=== PATIENT | female | born 1985 | race Caucasian/White ===

== ENCOUNTER 2018-08-05 11:11 | Emergency (ER) | payer MEDICAID ==
--- NOTE | 2018-08-05 12:04 | ED Physician Documentation ---
PD HPI URI - Stated complaint Stated Complaint: EAR PAIN, SORE THROAT - Chief complaint Chief Complaint: Heent - History obtained from History obtained from: Patient - History of Present Illness Timing - onset: How many weeks ago (1) Timing duration: Weeks (1) Timing details: Gradual onset, Still present Associated symptoms: Ear pain (left ear feels "clogged" for a week, along with congestion and mild sore throat.), Nasal congestion Similar symptoms before: Has not had sx before Recently seen: Not recently seen Review of Systems Constitutional: denies: Fever, Chills, Myalgias Ears: reports: Ear pain (left) Nose: reports: Rhinorrhea / runny nose, Congestion, Sinus pressure / pain Throat: reports: Sore throat Respiratory: denies: Cough GI: denies: Nausea, Vomiting, Diarrhea Skin: denies: Rash PD PAST MEDICAL HISTORY - Past Medical History Past Medical History: No - Present Medications Home Medications: Ambulatory Orders Medication Instructions Recorded Confirmed Amoxicillin 500 mg PO TID #21 capsule 08/05/18 Cetirizine [ZyrTEC] 10 mg PO DAILY #15 tablet 08/05/18 Dexamethasone [Decadron] 4 mg PO DAILY #5 tablet 08/05/18 - Allergies Allergies/Adverse Reactions: Allergies Allergy/AdvReac Type Severity Reaction Status Date / Time No Known Drug Allergies Allergy Verified 03/17/15 18:39 - Social History Does the pt smoke?: No Smoking Status: Never smoker PD ED PE NORMAL - Vitals Vital signs reviewed: Yes - General General: Alert and oriented X 3, No acute distress, Well developed/nourished - HEENT HEENT: Pharynx benign. No: Ears normal (right with some fluid behind it; left with more fluid and is red some. No glaringly red. ) - Neck Neck: Supple, no meningeal sign, No adenopathy - Cardiac Cardiac: RRR, No murmur - Respiratory Respiratory: Clear bilaterally - Derm Derm: Normal color, Warm and dry - Neuro Neuro: Alert and oriented X 3, No motor deficit, Normal speech Results - Vitals Vitals: Vital Signs - 24 hr 08/05/18 08/05/18 11:20 12:49 Temperature 36.8 C Heart Rate 83 82 Respiratory 16 16 Rate Blood Pressure 117/68 110/68 O2 Saturation 99 99 Oxygen O2 Source Room air PD MEDICAL DECISION MAKING - ED course Complexity details: considered differential (mainly URI symptoms but the left TM is bulging wiht some redness. May be early infectious. ), d/w patient Departure - Departure Disposition: 01 Home, Self Care Clinical Impression: Upper respiratory infection Qualifiers: URI type: unspecified URI Qualified Code(s): J06.9 - Acute upper respiratory infection, unspecified Otitis media Qualifiers: Otitis media type: serous Chronicity: acute Laterality: left Recurrence: non- recurrent Qualified Code(s): H65.02 - Acute serous otitis media, left ear Condition: Stable Record reviewed to determine appropriate education?: Yes Instructions: ED Otitis Media Acute Adult Prescriptions: Amoxicillin 500 mg PO TID #21 capsule Cetirizine [ZyrTEC] 10 mg PO DAILY #15 tablet Dexamethasone [Decadron] 4 mg PO DAILY #5 tablet Comments: Sounds mostly like a viral illness. However there is some fluid and redness on the left eardrum causing the congestion. This may be entirely viral or it may be partly bacterial. We will have you drink lots of fluids and use Tylenol ibuprofen if needed for fevers and pains. Decadron for inflammation. Cetirizine antihistamine daily. Use the amoxicillin 3 times a day for a week for possible bacterial involvement. Recheck if not improving over the next few days. Discharge Date/Time: 08/05/18 12:50
[2018-08-05] MEDS ORDERED: DEXAMETHASONE 10 MG/ML VIAL PO STA (12:23)
[2018-08-05] MEDS ORDERED: CHERRY SYRUP 10 ML UDC PO ONE (12:23)
[2018-08-05] MEDS ORDERED: CETIRIZINE 10 MG TABLET PO STA (12:23)
[2018-08-05] MEDS ORDERED: AMOXICILLIN 250 MG CAPSULE PO STA (12:23)
[2018-08-05 12:50] VITALS: BP 110/68
== END 2018-08-05 12:50 | disposition home or self-care (01) ==
LOC: ED 11:11
DX: J06.9 Acute upper respiratory infection, unspecified (principal); H65.02 Acute serous otitis media, left ear
CPT/HCPCS: 99283; A9270

== ENCOUNTER 2018-09-22 11:06 | Outpatient (CLI) | payer MEDICAID ==
--- NOTE | 2018-09-22 14:27 | Mammography Report ---
Reason: RT BREAST MASS Procedure Date: 09/22/2018 Accession Number: [id number] / [id number] Procedure: RODRIGO - Diagnostic Dig Bilat CPT Code: FULL RESULT: EXAM: Diagnostic Dig Bilat DATE: 09/22/2018 12:31 PM CLINICAL HISTORY: Right breast mass palpable on physical exam. TECHNIQUE: (B) - Bilateral CC, laterally exaggerated CC, MLO views were obtained. Additional spot magnified views were also obtained. Focused right breast ultrasound is performed. COMPARISON: None PARENCHYMAL PATTERN: (D) - The breast(s) demonstrate(s) heterogeneously dense fibroglandular parenchyma. FINDINGS: In the lateral right breast is diffusely increased density with mild architectural distortion and no discrete separable mass. Focused right breast ultrasound demonstrates irregular appearing hypoechoic infiltrating soft tissue throughout. There is skin thickening of the right breast. There are no suspicious masses, calcifications, or areas of distortion in the left breast. IMPRESSION: Highly suggestive for malignancy. BI-RADS category 5. RECOMMENDATION: (BIOPSY) - ultrasound-guided right breast biopsy. BI-RADS CATEGORY: (5) - Highly suggestive for malignancy. STANDARD QUALIFYING STATEMENTS: 1. This examination was not reviewed with the aid of Computer-Aided Detection (CAD). 2. A negative or benign imaging report should not preclude biopsy if clinically suspicious findings are present. 3. Dense breasts may obscure an underlying neoplasm. 4. This examination was reviewed without the aid of 3D breast imaging (tomosynthesis).
== END 2018-09-22 11:07 | disposition home or self-care (01) ==
LOC: DI 11:06
PROVIDERS: ATTEND Obstetrics & Gynecology
DX: N63.10 Unspecified lump in the right breast, unspecified quadrant (principal)
CPT/HCPCS: 76642; 77066

== ENCOUNTER 2018-09-30 09:49 | Outpatient (CLI) | payer MEDICAID ==
[2018-09-30] MEDS ORDERED: GADOBUTROL 15 MMOL/15 ML VIAL ONE (10:32)
--- NOTE | 2018-09-30 16:31 | MRI Report ---
Reason: LARGE RT BREAST MASS Procedure Date: 09/30/2018 Accession Number: [id number] / [id number] Procedure: MRI - Breast W/WO Cont CPT Code: 50789 FULL RESULT: EXAM: Breast W/WO Cont DATE: 09/30/2018 12:10 PM CLINICAL HISTORY: LARGE RT BREAST MASS COMPARISON: None. TECHNIQUE: Postcontrast sequential three-dimensional dynamic eTHRIVE (x5) STIR, T1 and DWI CONTRAST USED: 11 mL Gadavist (gadolinium). POSTPROCESSING: Subtraction dynamic/curve analysis and multiplanar reformations with CAD stream Diffusion-weighted imaging is degraded by motion artifact. FINDINGS: Chest: The right internal mammary chain demonstrates abnormal lymph nodes. Right breast: There is an irregular hypervascular infiltrative appearing right breast mass with suspicion enhancement which is centered in the right upper outer quadrant with maximal AP measurement of 12.3 cm in transverse measurement of 6 cm in axial projection of the contiguous Main mass and craniocaudal extent of at least 6.5 cm as seen sagittally. There is marked skin thickening with suspicious nonmass enhancement reaching to the skin. There is nonmass enhancement to the pectoralis major muscle with edema along the ventral pectoralis fascia reaching into the muscle and questionable abnormal enhancement of the lateral pectoralis musculature suspicious for invasion. Visualized portions of the right axilla demonstrate no enlarged lymph nodes as seen on the provided field of view, somewhat limited. Left breast: There is no definite dominant focus of suspicious mass or nonmass enhancement. A few foci of non mass enhancement demonstrated benign dynamic enhancement. There is no skin thickening. There are no pathologically enlarged axillary lymph nodes as seen. IMPRESSION: Infiltrative right upper outer quadrant hyperenhancing vascular mass measuring up to 12.3 cm with skin and pectoralis major muscle involvement and internal mammary lymphadenopathy suspected. COMMENT: The literature indicates that a negative dynamic breast MRI has a high sensitivity and specificity for the detection of invasive carcinoma (to a threshold of 5 mm). MRI is not reliably sensitive for detecting ductal carcinoma in situ or large invasive neoplasms with only minimal enhancement (i.e. mucinous carcinoma). Normal-appearing lymph nodes on MRI may contain microscopic tumor. Appropriate clinical mammographic and sonographic followup should be performed if recommended. Negative MRI should not dissuade further evaluation of any suspicious mammographic calcifications and/or worrisome palpable masses.
== END 2018-09-30 09:50 | disposition home or self-care (01) ==
LOC: DI 09:49
PROVIDERS: ATTEND Surgery
DX: N63.11 Unspecified lump in the right breast, upper outer quadrant (principal)
CPT/HCPCS: 77049

== ENCOUNTER 2018-09-30 09:51 | Outpatient (CLI) | payer MEDICAID ==
[2018-09-30] MEDS ORDERED: BUPIVACAINE 0.5%-EPI 1:200000 PF 10 ML VIAL ONE (11:35)
[2018-09-30] MEDS ORDERED: BUFFERED LIDOCAINE 10 ML SYRINGE ONE (11:35)
[2018-09-30] MEDS ORDERED: GADOBUTROL 15 MMOL/15 ML VIAL IV ONE (12:33)
--- NOTE | 2018-09-30 15:15 | Ultrasound Report ---
Reason: RT BREAST MASS Procedure Date: 09/30/2018 Accession Number: [id number] / [id number] Procedure: US - Biopsy Breast Core CPT Code: FULL RESULT: PROCEDURE: Ultrasound-guided needle biopsy right breast mass. CLINICAL DATA: Targeted mass infiltrating the right breast with irregular margins in the 10 o'clock axis of the right breast. Informed consent was obtained. Using standard aseptic technique, both 1% buffered lidocaine and Sensorcaine were injected into the right breast for local anesthesia. A small sammy was made in the skin with a #11 blade. A 12-gauge ZeOmega vacuum-assisted device was used to obtain 4 specimens. A specialized biopsy marker clip was placed into the biopsy cavity under ultrasound guidance. The patient was taken to separate mammography machine and a two-view digital mammography was performed to verify the clip placement and any complications. The mammography showed the clip placement in the right lateral breast superficial to the breast cone in an area now isodense to background adipose tissue which previously showed dense tissue. The wound was dressed and ice applied. The patient was observed for approximately 15 minutes, then was discharged from diagnostic imaging Department in good condition following instructions on wound care and obtaining biopsy results. The patient is scheduled to receive the biopsy results from the referring physician. The tissue was sent for histologic analysis. The breast was noted to be diffusely hypervascular with exquisite tenderness in hypoechoic regions despite ample local anesthetic. IMPRESSION: Ultrasound-guided biopsy of the right breast. AN ADDENDUM WILL BE MADE TO THIS REPORT WHEN PATHOLOGY IS REVIEWED TO ESTABLISH CONCORDANCE.
[2018-09-30] MEDS ORDERED: BUFFERED LIDOCAINE 10 ML SYRINGE IU ONE (17:03)
[2018-09-30] MEDS ORDERED: BUPIVACAINE 0.5%-EPI 1:200000 PF 10 ML VIAL SUBQ ONE (17:03)
== END 2018-09-30 09:52 | disposition home or self-care (01) ==
LOC: DI 09:51
PROVIDERS: ATTEND Obstetrics & Gynecology
DX: C50.411 Malignant neoplasm of upper-outer quadrant of right female breast (principal); Z17.0 Estrogen receptor positive status [ER+]
CPT/HCPCS: 19083; 77049; 77065; A9585

== ENCOUNTER 2018-10-07 11:43 | Outpatient (CLI) | payer BC ==
--- NOTE | 2018-10-07 16:06 | Ultrasound Report ---
Reason: RIGHT BREAST CANCER Procedure Date: 10/07/2018 Accession Number: [id number] / [id number] Procedure: US - Axilla CPT Code: FULL RESULT: EXAM: Axillary ultrasound DATE: 10/07/2018 1:03 PM CLINICAL HISTORY: RIGHT BREAST CANCER COMPARISON: 09/30/2018 breast MRI, 09/22/2018 mammogram. TECHNIQUE: Real-time scanning of the right axilla with me present in saved static images reviewed. FINDINGS: In the right axilla there is a prominent lymph node versus 2 adjacent inseparable lymph nodes measuring 2.4 x 1.4 x 1.5 cm. There is suspicious asymmetric hypoechoic thickening along 1 margin of the lymph node. In addition immediately adjacent to this lymph node there is a second unusual appearing echogenic lymph node measuring 1.9 x 1.4 x 1.8 cm. IMPRESSION: Suspicious appearing lymph node(s) right axilla. Consider FNA if that would alter the course of patient management. BI-RADS 4 suspicious
== END 2018-10-07 11:44 | disposition home or self-care (01) ==
LOC: DI 11:43
PROVIDERS: ATTEND Surgery
DX: C50.911 Malignant neoplasm of unspecified site of right female breast (principal)
CPT/HCPCS: 76882

== ENCOUNTER 2018-10-11 10:52 | Day surgery (SDC) | payer BC ==
[2018-10-11] MEDS ORDERED: LIDOCAINE 1% 50 ML MDV ONE (11:07)
[2018-10-11] MEDS ORDERED: BUPIVACAINE 0.5%-EPI 1:200000 PF 30 ML VIAL ONE (11:08)
[2018-10-11] MEDS ORDERED: CEFAZOLIN SODIUM IN 0.9 % NACL 2 GM/100 ML BAG IV ONE (11:13)
[2018-10-11 11:25] LABS: HCG UR QUAL NEGATIVE
--- NOTE | 2018-10-11 12:02 | ANESTHESIA ---
Pre-Anesthesia VS, & Labs - Diagnosis breast cancer - Procedure port placement Vital Signs: Temp Pulse Resp BP Pulse Ox 36.5 C 77 19 118/61 98 10/11/18 11:00 10/11/18 11:00 10/11/18 11:00 10/11/18 11:00 10/11/18 11:00 Height 5 ft 3 in Weight (kg) 110.2 kg Body Mass Index 42.5 - NPO >8 hours - Is Patient ?: No Home Medications and Allergies Allergies/Adverse Reactions: Allergies Allergy/AdvReac Type Severity Reaction Status Date / Time No Known Drug Allergies Allergy Verified 03/17/15 18:39 Anes History & Medical History - Anesthetic History Anesthesia Complications: reports: No previous complications - Medical History Cardiovascular: reports: None Pulmonary: reports: None Gastrointestinal: reports: None Urinary: reports: None Musculoskeletal: reports: None Endocrine/Autoimmune: reports: None Skin: reports: None Smoking Status: Never smoker Exam General: Alert Mouth Opening: Greater than 4 Fingerbreadths Mallampati classification: II Thyromental Distance: greater than 6 cm Respiratory: Lungs clear Cardiovascular: Regular rate Mental/Cognitive Status: Alert/Oriented X3 Plan Anesthesia Type: General Consent for Procedure(s) Verified and Reviewed: Yes Code Status: Attempt Resuscitation ASA classification: 2-Mild systemic disease Is this case an emergency?: Yes
[2018-10-11] MEDS ORDERED: LACTATED RINGERS 1,000 ML IV ONE ×2 (12:04→13:25)
[2018-10-11] MEDS ORDERED: LIDOCAINE 1% 50 ML MDV SUBQ ONE (12:59)
[2018-10-11] MEDS ORDERED: MIDAZOLAM 2 MG/2 ML VIAL IVP ONE (13:00)
[2018-10-11] MEDS ORDERED: LIDOCAINE-MPF 2% 5 ML VIAL IM ONE (13:00)
[2018-10-11] MEDS ORDERED: fentaNYL 100 MCG/2 ML VIAL IVP ONE (13:00)
[2018-10-11] MEDS ORDERED: PROPOFOL 200 MG/20 ML VIAL IVP ONE (13:00)
[2018-10-11] MEDS ORDERED: BUPIVACAINE 0.5%-EPI 1:200000 PF 30 ML VIAL SUBQ ONE (13:00)
[2018-10-11] MEDS ORDERED: DEXAMETHASONE 4 MG/ML VIAL IVP ONE (13:00)
[2018-10-11] MEDS ORDERED: ONDANSETRON 4 MG/2 ML VIAL IVP ONE (13:00)
[2018-10-11] MEDS: LACTATED RINGERS 1,000 ML IV ONE (13:19)
[2018-10-11] MEDS ORDERED: HYDROmorphone 0.5 MG/0.5 ML SYRINGE IVP PRN (13:25)
[2018-10-11] MEDS ORDERED: ONDANSETRON 4 MG/2 ML VIAL IVP PRN (13:25)
[2018-10-11] MEDS ORDERED: oxyCODONE 5 MG TABLET PO PRN (13:25)
--- NOTE | 2018-10-11 13:25 | OPERATIVE REPORT ---
Operative Report - General Procedure Date: 10/11/18 Planned Procedure: Left Subclavian Power Port Pre-Op Diagnosis: Right Breast Cancer Procedure Performed: Left subclavian power port Post Op Diagnosis: Same - Procedure Note Primary Surgeon: Madhav Anesthesia Provider: SARAH Manuel; SARAH Johnson Anesthesia Technique: General LMA, Local IV Fluids (mL): 1,100 Estimated Blood Loss (mL): 20 Findings: Left subclavian port in good position Complications: None apparent - Other Other Information/Narrative: After obtaining informed consent, the patient is brought to the operating room and placed in the supine position on the operating table. Following successful induction of general endotracheal anesthesia, appropriate padding of all bony prominences, and placement of appropriate monitors, the left chest is prepped and draped in the standard surgical fashion. A timeout was held per VAOAP protocol. Following infiltration with local anesthetic to create a field block, the left subclavian vein was accessed in the deltopectoral groove. Applying Seldinger technique, a J-wire was placed through the needle and into the vein. Fluoroscopy confirmed position of the wire in the superior vena cava.A pocket was created 3 cm inferior to the access site for placement of the port device. This was developed bluntly and cautery was used to achieve hemostasis. The tunneling device was used to connect to the port site and the access site together and the tubing was trimmed to an appropriate length. The port was assembled according to electromechanisms design drafter's directions and sewn in the pocket with 2 interrupted Prolene sutures. The dilator and introducer were then passed over the wire and into the vein. The dilator was removed and the tubing passed through the introducer and into the vein.The introducer was split and removed.The port was checked for function and flushed and arsh easily. It was then flushed with 2000 units or 2 cc of heparin.The pocket was closed with Vicryl and Monocryl suture and Monocryl was applied at the access site.The wound was dressed with Dermabond. All sponge, needle, and instrument counts were correct at the conclusion of the case. The patient received a chest x-ray in the recovery room revealing the port in good position.
--- NOTE | 2018-10-11 13:31 | XRAY Report ---
Reason: SURGERY Procedure Date: 10/11/2018 Accession Number: [id number] / [id number] Procedure: FL - OR Port-A-Cath CPT Code: FULL RESULT: EXAM: FLUOROSCOPIC GUIDANCE EXAM DATE: 10/11/2018 01:18 PM. CLINICAL HISTORY: Surgery. COMPARISON: None. FINDINGS: None. The radiologist was not present and no images are submitted for review. IMPRESSION: Fluoroscopic guidance provided for central venous port placement. Total fluoroscopy time: 0.2 minutes. Number of images: 0. RADIA
--- NOTE | 2018-10-11 14:12 | XRAY Report ---
Reason: Left subclavian port Procedure Date: 10/11/2018 Accession Number: [id number] / [id number] Procedure: XR - Post Port Placement 1V CXR CPT Code: 15724 FULL RESULT: EXAM: CHEST RADIOGRAPHY EXAM DATE: 10/11/2018 02:06 PM. CLINICAL HISTORY: Left subclavian port. COMPARISON: None. TECHNIQUE: 1 view. FINDINGS: Lungs/Pleura: No focal opacities evident. No pleural effusion. No pneumothorax. Mediastinum: Within exam limitations, the cardiomediastinal contour is normal. Other: Left subclavian approach central venous port placement with the catheter tip projecting over the expected location of the juncture of the innominate vein and SVC. IMPRESSION: Port placement as described. RADIA
[2018-10-11 14:43] VITALS: BP 121/69
== END 2018-10-11 10:53 | disposition home or self-care (01) ==
LOC: SDS 10:52
PROVIDERS: ATTEND Surgery
PROC: 02HV33Z Insertion of Infusion Device into Superior Vena Cava, Percutaneous Approach (ICD-10-PCS; principal; 2018-10-11 12:00)
DX: C50.111 Malignant neoplasm of central portion of right female breast (principal); Z17.0 Estrogen receptor positive status [ER+]; E66.9 Obesity, unspecified; Z68.41 Body mass index [BMI] 40.0-44.9, adult; Z80.3 Family history of malignant neoplasm of breast; Z86.2 Personal history of diseases of the blood and blood-forming organs and certain disorders involving the immune mechanism; Z86.59 Personal history of other mental and behavioral disorders
CPT/HCPCS: 36561; 81025; C1788; J0690; J7120; 71045

== ENCOUNTER 2018-10-26 07:44 | Outpatient (CLI) | payer BC | END 2018-10-26 07:45 | disposition home or self-care (01) | LOC: DI 07:44 | PROVIDERS: ATTEND Internal Medicine Hematology & Oncology | DX: C50.911 Malignant neoplasm of unspecified site of right female breast (principal) | CPT/HCPCS: 93306 ==

== ENCOUNTER 2019-01-03 08:00 | Outpatient (CLI) | payer BC ==
[2019-01-03 09:25] LABS: CHOL/HDL RATIO 4.8 (<4.4); CHOLESTEROL 159 mg/dL; HDL CHOLESTEROL 33 mg/dL; LDL CHOLESTEROL,CALCULATED 104 mg/dL; LDL/HDL RATIO 3.2 (<4.4); VLDL CHOLESTEROL 22 mg/dL
== END 2019-01-03 23:59 | disposition home or self-care (01) ==
LOC: LAB.R 08:00
PROVIDERS: ATTEND Nurse Practitioner Gerontology
DX: Z13.9 Encounter for screening, unspecified (principal)
CPT/HCPCS: 80061; 83721

== ENCOUNTER 2019-03-21 07:38 | Day surgery (SDC) | payer OTHER ==
[~2019-03-21 07:38] MED LIST: BUPIVACAINE 0.5% PF 30 ML VIAL ONE; CEFAZOLIN SODIUM IN 0.9 % NACL 2 GM/100 ML BAG IV ONE; LIDOCAINE 1%-EPI 1:100000 20 ML MDV ONE
[2019-03-21] MEDS ORDERED: fentaNYL 100 MCG/2 ML VIAL IVP ONE (07:39)
[2019-03-21] MEDS ORDERED: MIDAZOLAM 2 MG/2 ML VIAL IVP ONE (07:39)
[2019-03-21] MEDS ORDERED: fentaNYL 250 MCG/5 ML VIAL IVP ONE (07:39)
[2019-03-21] MEDS ORDERED: KETOROLAC 30 MG/ML VIAL IVP ONE (07:39)
[2019-03-21] MEDS ORDERED: KETAMINE 500 MG/10 ML VIAL IVP ONE (07:39)
[2019-03-21] MEDS ORDERED: PHENYLEPHRINE 10 MG/ML VIAL IV ONE (07:39)
[2019-03-21] MEDS ORDERED: PROPOFOL 200 MG/20 ML VIAL IVP ONE (07:39)
[2019-03-21] MEDS ORDERED: LACTATED RINGERS 1,000 ML IV ONE ×3 (07:46→13:34)
[2019-03-21 08:01] LABS: HCG UR QUAL NEGATIVE
[2019-03-21] MEDS ORDERED: ROPIVACAINE 0.5% PF 20 ML AMPULE ONE (08:11)
--- NOTE | 2019-03-21 08:27 | ANESTHESIA ---
Pre-Anesthesia VS, & Labs - Diagnosis Right breast cancer - Procedure Bilateral simple mastectomies with skin sparing with right axillary node dissection Vital Signs: Temp Pulse Resp BP Pulse Ox 36.2 C L 94 15 118/77 98 03/21/19 07:46 03/21/19 07:46 03/21/19 07:46 03/21/19 07:46 03/21/19 07:46 Height 5 ft 3 in Weight (kg) 110.3 kg Body Mass Index 42.7 - NPO >8 hours - Is Patient ?: No Home Medications and Allergies Home Medications: Ambulatory Orders Lipoic Acid 600 mg PO TID 03/13/19 Folic Acid 5 mg PO DAILY 03/07/19 Lipoic Acid 600 mg PO TID 03/13/19 Allergies/Adverse Reactions: Allergies Allergy/AdvReac Type Severity Reaction Status Date / Time No Known Drug Allergies Allergy Verified 03/07/19 09:07 Anes History & Medical History - Anesthetic History Anesthesia Complications: reports: No previous complications - Medical History Cardiovascular: reports: None Pulmonary: reports: None Gastrointestinal: reports: None Urinary: reports: None Neuro: reports: Headaches Musculoskeletal: reports: None Endocrine/Autoimmune: reports: None, Other (Morbid obesity, BMI >40) Skin: reports: None Smoking Status: Never smoker Other Past Medical History: Locally advanced Right breast cancer. S/p chemo, Last round completed 2 weeks ago. - Surgical History General: Other (port placement) Exam General: Alert, Oriented x3, Cooperative, No acute distress Dental: WNL Mouth Openin Fingerbreadth Neck Mobility: Normal Mallampati classification: II Thyromental Distance: greater than 6 cm Respiratory: Lungs clear, Normal breath sounds, No respiratory distress, No accessory muscle use Cardiovascular: Regular rate, Normal S1, Normal S2, No murmurs Mental/Cognitive Status: Alert/Oriented X3, Normal for patient Plan Anesthesia Type: General, Other Block (Randy. PECs 1&2) Consent for Procedure(s) Verified and Reviewed: Yes Code Status: Attempt Resuscitation ASA classification: 3-Severe systemic disease Is this case an emergency?: No
[2019-03-21] MEDS ORDERED: GABAPENTIN 400 MG CAPSULE ONE (08:30)
[2019-03-21] MEDS ORDERED: CELECOXIB 100 MG CAPSULE PO ONE (08:30)
[2019-03-21] MEDS ORDERED: ACETAMINOPHEN 500 MG TABLET PO ONE (08:31)
[2019-03-21] MEDS ORDERED: LIDOCAINE 1%-EPI 1:100000 30 ML MDV SUBQ ONE (09:47)
[2019-03-21] MEDS ORDERED: BUPIVACAINE 0.5% PF 30 ML VIAL SUBQ ONE (09:47)
--- NOTE | 2019-03-21 11:39 | ANESTHESIA PROCEDURE NOTE ---
Diagnosis: Right breast cancer, Bilateral mastectomies Procedure: Bilateral PEC 1&2 blocks Consent for Procedure(s) Verified and Reviewed: Yes Height and Weight: Height 5 ft 3 in Weight (kg) 110.3 kg Body Mass Index 42.7 Vital Signs: Temp Pulse Resp BP Pulse Ox 36.2 C L 94 15 118/77 98 03/21/19 07:46 03/21/19 07:46 03/21/19 07:46 03/21/19 07:46 03/21/19 07:46 Allergies No Known Drug Allergies Allergy (Verified 03/07/19 09:07) Requesting Provider: Madhav Location: Bilateral Anes. Monitoring and Equipment: Non-invasive BP, Pulse oximetery Procedure Notes: After induction of anesthesia, Right and Left chest singh prepped with chloroprep. Left pectoralis major and minor muscles identified under ultrasound. A 22G stimiplex needle was directed towards the fascial planes. A total of 20ml of 0.25% ropivicaine plus 4mg of decadron was injected between the pectoralis minor and NORRIS with adequate spread noted. An additional 10ml of local mix was injected between the pectoralis minor and major muscles. Right pectoralis major and minor muscles identified under ultrasound. A 22G stimiplex needle was directed towards the fascial planes. A total of 20ml of 0.25% ropivicaine plus 4mg of decadron was injected between the pectoralis minor and NORRIS with adequate spread noted. An additional 10ml of local mix was injected between the pectoralis minor and major muscle.Patient tolerated well and full evaluation pending.
[2019-03-21] MEDS ORDERED: ONDANSETRON 4 MG/2 ML VIAL IVP PRN ×2 (13:02→13:53)
[2019-03-21] MEDS ORDERED: oxyCODONE 5 MG TABLET PO PRN ×2 (13:02→13:53)
[2019-03-21] MEDS ORDERED: ACETAMINOPHEN 325 MG TABLET PO PRN ×2 (13:02→13:53)
[2019-03-21] MEDS ORDERED: IBUPROFEN 600 MG TABLET PO PRN ×2 (13:02→13:53)
[2019-03-21] MEDS ORDERED: LORazepam 2 MG/ML VIAL IVP PRN (13:53)
[2019-03-21] MEDS ORDERED: SODIUM CHLORIDE FLUSH 0.9% 10 ML SYRINGE IVP PRN (13:53)
[2019-03-21] MEDS ORDERED: HYDROmorphone 0.5 MG/0.5 ML SYRINGE ONE (14:26)
--- NOTE | 2019-03-21 16:13 | OPERATIVE REPORT ---
Operative Report - General Planned Procedure: Bilateral skin sparing mastectomy with right axillary dissection Pre-Op Diagnosis: Locally advanced right breast cancer Procedure Performed: Bilateral mastectomy with right axillary dissection Post Op Diagnosis: Same - Procedure Note Primary Surgeon: Madhav Anesthesia Provider: SARAH Johnson Anesthesia Technique: General LMA, Local, Regional block Pathology: 1. Left breast 2. Right axillary contents 3. Right breast Estimated Blood Loss (mL): 150 Drain/Tube Type: Nikhil drain (1 19 F Nikhil drain in the inframmary pocket on each side) Complications: None apparent - Other Other Information/Narrative: After obtaining informed consent, the patient is brought to the operating room and placed in the supine position on the operating table. Following successful induction of general anesthesia, appropriate padding of all bony prominences, and placement of appropriate monitors, bilateral chest and axilla were prepped and draped in the standard surgical fashion. A timeout was held per scope protocol. All elements of the surgical safety checklist were followed before, during, and after the procedure. We began the procedure on the left side i.e. the unaffected side.A circular incision was fashioned around the nipple areola complex. A scalpel was used to open this incision through the skin and subcutaneous tissue.The breast tissue was then liberated from the overlying skin and subcutaneous tissue using traction and countertraction as well as cautery and sharp dissection. Planes were developed medially to the sternum, inferiorly to the inframammary fold, laterally to the latissimus muscle, and superiorly to approximately 4 cm inferior to the clavicle at the site of the existing PowerPort.Once these planes were all developed, the breast was then released from the pectoral fascia and removed in a medial to lateral fashion.It was marked with a short stitch superior,and a long stitch lateral.The wound was checked for hemostasis. It was irrigated with warm water and aspirated free of all fluid and particulate matter. A 19 [place] Nikhil drain was placed in the inframammary pocket and brought out inferior medially. This was sewn into place. The incision was then closed with interrupted Vicryl sutures and the Endo Close device was used to close the skin incision. The wound was dressed with Dermabond and covered with a dry towel.We continued the procedure on the right side. An incision was created in the right axilla to access a level 1 and level 2 of the axillary nodes. This was carried down through the skin and subcutaneous tissue. The axillary fat pad was entered without difficulty. Dissection was carried out medially to free all of the lymphatic tissue from the chest wall to the axillary vein. No attempt was made to remove nodes deep to the pectoralis minor muscle. All a ferret and each parent lymphatics were addressed with hemoclips prior to division.The axillary vein was visualized but not skeletonized.The tissue was removed in a superior to inferior fashion.The chest wall was our medial margin, the vein superior, the latissimus muscle was lateral,In the breast tissue in the axillary tail was the inferior or inferior medial margin.The tissue was liberated from the surrounding structures and passed from the table. We continued with the right mastectomy. A circular incision was fashioned around the nipple areola complex. A scalpel was used to open this incision through the skin and subcutaneous tissue.The breast tissue was then liberated from the overlying skin and subcutaneous tissue using traction and countertraction as well as cautery and sharp dissection. Planes were developed medially to the sternum, inferiorly to the inframammary fold, laterally to the latissimus muscle, and superiorly to approximately 4 cm inferior to the clavicle. Once these planes were all developed, the breast was then released from the pectoral fascia and removed in a medial to lateral fashion.It was marked with a short stitch superior,and a long stitch lateral.The wound was checked for hemostasis. It was irrigated with warm water and aspirated free of all fluid and particulate matter. A 19 [place] Nikhil drain was placed in the inframammary pocket and brought out inferior medially. This was sewn into place. The incision was then closed with interrupted Vicryl sutures and the Endo Close device was used to close the skin incision both at the breast and the axilla. Dermabond was applied to the incisions.All sponge, needle, and instrument counts were correct at the conclusion of the case. The patient was allowed awaken from anesthesia without difficulty and taken to the postanesthesia care unit in good condition.
[2019-03-21] MEDS ORDERED: PROMETHAZINE INJ 25 MG in SODIUM CHLORIDE 0.9% 50 ML IV PRN (17:34)
[2019-03-21] MEDS: SODIUM CHLORIDE FLUSH 0.9% 10 ML SYRINGE IVP SCH (17:45)
[2019-03-21] MEDS ORDERED: SCOPOLAMINE PATCH TOP SCH (18:00)
[2019-03-21] MEDS: GABAPENTIN 300 MG CAPSULE PO SCH (21:34)
[2019-03-22] MEDS: SODIUM CHLORIDE FLUSH 0.9% 10 ML SYRINGE IVP SCH ×2 (01:00→08:31)
[2019-03-22] MEDS ORDERED: PANTOPRAZOLE 40 MG TABLET PO SCH (07:00)
[2019-03-22] MEDS: GABAPENTIN 300 MG CAPSULE PO SCH (08:06)
[2019-03-22] MEDS ORDERED: ENOXAPARIN 40 MG/0.4 ML SYRINGE SUBQ SCH (09:00)
[2019-03-22 09:35] VITALS: BP 126/62
== END 2019-03-22 10:45 | disposition home or self-care (01) ==
LOC: SDS 07:38 → ICU 14:47 → SDS 03-22 10:45
PROVIDERS: ATTEND Surgery
PROC: 07T50ZZ Resection of Right Axillary Lymphatic, Open Approach (ICD-10-PCS; 2019-03-21)
PROC: 0HTV0ZZ Resection of Bilateral Breast, Open Approach (ICD-10-PCS; principal; 2019-03-21 08:30)
DX: C50.911 Malignant neoplasm of unspecified site of right female breast (principal); C77.3 Secondary and unspecified malignant neoplasm of axilla and upper limb lymph nodes; N60.12 Diffuse cystic mastopathy of left breast; E66.01 Morbid (severe) obesity due to excess calories; Z17.0 Estrogen receptor positive status [ER+]; Z79.899 Other long term (current) drug therapy; Z68.41 Body mass index [BMI] 40.0-44.9, adult
CPT/HCPCS: 19303; 19307; 81025; A9270; J0690; J1170; J1650; J2060; J3010; J3490; J7040; J7120

== ENCOUNTER 2020-12-22 08:38 | Outpatient (CLI) | payer OTHER ==
[2020-12-22] MEDS ORDERED: IOPAMIDOL-300 100 ML VIAL ONE (08:47)
[2020-12-22] MEDS ORDERED: IOVERSOL 320 50 ML VIAL ONE (08:47)
[2020-12-22] MEDS ORDERED: IOVERSOL 320 50 ML VIAL PO ONE (10:37)
[2020-12-22] MEDS ORDERED: IOPAMIDOL-300 100 ML VIAL IVP ONE (10:37)
--- NOTE | 2020-12-22 11:44 | CT Report ---
PROCEDURE: Abdomen/Pelvis W INDICATIONS: BREAST CA CONTRAST: IV CONTRAST: Isovue 300 ml: 100 PO CONTRAST: Optiray 320 ml50 TECHNIQUE: After the administration of IV and oral contrast, 5 mm thick sections acquired from the diaphragms to the symphysis. 5 mm thick coronal and sagittal reformats were acquired. For radiation dose reducti on, the following was used: automated exposure control, adjustment of mA and/or kV according to arturo ent size. This patient experienced a contrast extravasation, estimated to be 30 to 50 cc. The emergency departm ent physician on duty examine this patient's externalization before leaving the department. COMPARISON: Correlation is made with the accompanying chest CT, 12/22/2020. FINDINGS: Image quality: Limited by decreased injection bolus. ABDOMEN: Lung bases: Lung bases are clear. Heart size is normal. Solid organs: Liver and spleen are normal in size and enhancement. An accessory splenule is inciden tally noted along the hilum of the primary spleen. Gallbladder wall does not appear thickened. Bi liary system is non dilated. Pancreas enhances normally. No adrenal nodules. Kidneys demonstrate n ormal size and enhancement, without hydronephrosis. Peritoneum and bowel: Bowel loops demonstrate normal wall thickness and caliber. No free fluid or a ir. Nodes and vessels: No retroperitoneal or mesenteric adenopathy by size criteria. Aorta and inferior vena cava are normal in size. Miscellaneous: A mild fat-containing periumbilical hernia is seen. PELVIS: Genitourinary: Bladder wall thickness is normal. The uterus demonstrates an unremarkable appearance for age. No adnexal masses are seen. Miscellaneous: No inguinal hernias or adenopathy. Bones: No suspicious bony lesions. No vertebral body compression fractures. Mild focal L5-S1 degen erative change is seen. IMPRESSION: No findings of metastatic disease are detected. Incidental note is made of: Accessory splenule Fat-containing periumbilical hernia Focal L5-S1 degenerative change Reviewed by: Mik Daniel MD on 12/22/2020 10:43 AM VIRGILIO Approved by: Mik Daniel MD on 12/22/2020 10:43 AM VIRGILIO Station ID: [id number]
--- NOTE | 2020-12-22 11:47 | CT Report ---
PROCEDURE: CHEST W INDICATIONS: BREAST CA CONTRAST: IV CONTRAST: Isovue 300 ml: 100 PO CONTRAST: Optiray 320 ml50 TECHNIQUE: After the administration of intravenous contrast, images were acquired from the pulmonary apices to t he posterior costophrenic angles. Multiplanar MIP reformats were acquired. For radiation dose reduc tion, the following was used: automated exposure control, adjustment of mA and/or kV according to pa tient size. This patient had a contrast extravasation with 30-50 cc estimated extremity. The patient was examined by the emergency physician on duty before leaving the department. COMPARISON: Correlation is made with the accompanying abdomen and pelvis CT, 12/22/2020. FINDINGS: Image quality: Excellent. Lungs and pleura: No acute air space opacities. No pleural effusions or pneumothorax. Central and peripheral airways are patent and normal in caliber. Mediastinum: Heart size is normal. No pericardial effusion. No mediastinal or hilar adenopathy by size criteria. Thoracic aorta and central pulmonary arteries are normal in size. Esophagus is komal l in caliber. No significant hiatal hernia. Bones and chest wall: No suspicious bony lesions. No vertebral body compression fractures. Mastecto my changes are seen. Bilateral axillary clips are seen. No axillary or supraclavicular adenopathy by size criteria. The thyroid is normal in size and there are no incidental findings. Abdomen: Visualized upper abdominal solid organs appear normal. Upper abdominal bowel loops are nor mal in caliber. IMPRESSION: Bilateral mastectomy changes are seen, with bilateral axillary clips. No findings of metastatic disease are detected. Reviewed by: Mik Daniel MD on 12/22/2020 10:45 AM VIRGILIO Approved by: Mik Daniel MD on 12/22/2020 10:45 AM VIRGILIO Station ID: [id number]
== END 2020-12-22 08:39 | disposition home or self-care (01) ==
LOC: DI 08:38
PROVIDERS: ATTEND Internal Medicine Hematology & Oncology
DX: C50.919 Malignant neoplasm of unspecified site of unspecified female breast (principal); Z90.13 Acquired absence of bilateral breasts and nipples
CPT/HCPCS: 71260; 74177; Q9967

== ENCOUNTER 2021-03-19 09:00 | Outpatient (CLI) | payer BC | END 2021-03-19 23:59 | disposition home or self-care (01) | LOC: LAB.WCP 09:00 | PROVIDERS: ATTEND Family Medicine | DX: N39.0 Urinary tract infection, site not specified (principal) | CPT/HCPCS: 87086; 87181 ==

== ENCOUNTER 2021-03-26 08:00 | Outpatient (CLI) | payer BC | END 2021-03-26 23:59 | disposition home or self-care (01) | LOC: LAB.WCP 08:00 | PROVIDERS: ATTEND Family Medicine | DX: N39.0 Urinary tract infection, site not specified (principal) | CPT/HCPCS: 87086; 87181 ==

== ENCOUNTER 2021-04-18 06:22 | Outpatient (CLI) | payer BC ==
[2021-04-18 06:48] LABS: HCG UR QUAL NEGATIVE
[2021-04-18] MEDS ORDERED: LACTATED RINGERS 1,000 ML IV ONE (06:50)
[2021-04-18 06:52] VITALS: BP 114/72
[2021-04-18 07:08] LABS: INR 1.1 (0.8-1.2); PT - PROTHROMBIN TIME 11.7 secs (9.9-12.6)
[2021-04-18 07:15] LABS: PARTIAL THROMBOPLASTIN TIME 29.4 secs (24.9-33.3)
== END 2021-04-18 06:23 | disposition home or self-care (01) ==
LOC: DI 06:22
PROVIDERS: ATTEND Internal Medicine Hematology & Oncology
DX: Z01.812 Encounter for preprocedural laboratory examination (principal); U07.1 COVID-19; C50.919 Malignant neoplasm of unspecified site of unspecified female breast
CPT/HCPCS: 36415; 81025; 85049; 85610; 85730

== ENCOUNTER 2021-05-01 09:09 | Outpatient (CLI) | payer BC ==
[2021-05-01] MEDS ORDERED: LACTATED RINGERS 1,000 ML IV ONE ×2 (09:38→11:00)
[2021-05-01] MEDS ORDERED: lidocaine 1% 20 ML MDV ONE (10:00)
[2021-05-01] MEDS ORDERED: MIDAZOLAM 2 MG/2 ML VIAL ONE (10:01)
[2021-05-01] MEDS ORDERED: fentaNYL 100 MCG/2 ML VIAL ONE (10:01)
[2021-05-01 12:08] VITALS: BP 117/68
--- NOTE | 2021-05-01 12:48 | CT Report ---
PROCEDURE: Biopsy Bone Needle Superfic Sedation analgesia for 8 minutes. INDICATIONS: BREAST CA, MULTIPLE MYELOMA TECHNIQUE: The indications, alternatives, benefits, risks, and possible complications of the procedure were comm unicated to the patient. Informed written consent from the patient was obtained and placed in the art. Continuous EKG and hemodynamic monitoring was started by trained personnel. For radiation dose reduction, the following was used: automated exposure control, adjustment of mA and/or kV according to patient size. The patient was brought to the CT suite and sort line worker spiral CT imaging was performed with localization g rid. The appropriate site for percutaneous access to the biopsy target was marked, was prepped and d raped sterilely, and was infused with local anaesthesia. Under CT guidance, a core biopsy trocar and needle set was advanced to the biopsy target, and specimen(s) were obtained. The trocar and needle were then removed, and the patient was sent for post-procedure monitoring. COMPARISON: None. FINDINGS: Biopsy site: Right anterior iliac crest Number of passes: 1 core sample obtained. Multiple attempts at aspiration were not successful in wit hdrawing liquid bone marrow. Medications: 1% lidocaine for local anaesthesia. IV Fentanyl and Versed for conscious sedation for 8 minutes (see nursing record). Complications: None. IMPRESSION: Successful CT-guided biopsy of right anterior iliac crest lytic bone lesion. Reviewed by: Rakan Su MD on 05/01/2021 12:47 PM PST Approved by: Rakan Su MD on 05/01/2021 12:47 PM PST Station ID: [id number]
== END 2021-05-01 09:10 | disposition home or self-care (01) ==
LOC: DI 09:09
PROVIDERS: ATTEND Internal Medicine Hematology & Oncology
DX: C50.919 Malignant neoplasm of unspecified site of unspecified female breast (principal); C79.51 Secondary malignant neoplasm of bone; Z20.822 Contact with and (suspected) exposure to COVID-19
CPT/HCPCS: 20220; 77012; J7120

== ENCOUNTER 2021-06-05 09:45 | Outpatient (CLI) | payer BC ==
--- NOTE | 2021-06-05 16:33 | CONSULTATION NOTE ---
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 She was a T3, and 3, M0 stage III ER/MT positive HER-2 negative, received neoadjuvant Adriamycin/Cytoxan/Taxol completed 03/2019, bilateral mastectomy 03/2019 with noted 11.5 cm tumor and 4 out of 6 nodes positive. She did complete radiation 07/2019. She had been on Zoladex, tamoxifen, and most recently anastrozole. She did have rising tumor marker, and received a PET scan 03/25 that showed bone mets in the thoracic spine, sacrum, left first rib and bilateral iliac bones. She has started her Faslodex and Ibrance, but does present with worsening bone pain. Patient does present with worsening pain, identifies it in her bilateral hip areas, worsening with standing, across her lower back, she also has right shoulder pain with some limited mobility, though did have a fall when sledding, this may be a show rotator cuff tear.Unfortunately this is in the context of her social situation, she does have 4 children, she works full-time, for 10-hour shifts in the evening. Her work requires her to stand for long periods of time and be active. She reports her pain escalates through the evening and is fairly severe by the time she gets home.Her pain does awaken her at night, particularly if she has to lay on her side. With pressure on her hips notes this. Her pain does fluctuate often depending on how active she is. 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 As well as concern for addiction. Patient has been intentionally losing weight, originally was 244, had on a "keto diet" lost weight to 196. She was preparing for reconstruction surgery and a "tummy tuck". She had gotten as low as 196, currently she is at 206 as she has been eating more most likely related to the steroids as well as stress. Her goal would be to be 170. Patient is on duloxetine 20 mg for depression and pain management previously. She is appropriately tearful and overwhelmed regarding her recent recurrence. Her is quite supportive, she reports she did fairly well last round with the treatments and managing, was able to take some work with [employer]. Unfortunately she did have a SSRI appointment, and does not qualify for disability. She is exploring FMLA, has multiple questions as it does appear she was told she may be eligible in January. Patient has not been vaccinated for Covid, reports she did have Covid in April, and did experience chest heaviness, residual cough and fever, and feeling poorly. She has not had any residual side effects.This is related to her distress at the vaccine, did review we do recommend all cancer patients get vaccinated, though she may have some immunity from her recent infection, would be important particularly as she proceeds with her Ibrance. Medical/Surgical History - Past Medical History Cardiovascular: reports: None Respiratory: reports: None Neuro: Headaches Endocrine/Autoimmune: reports: None GI: reports: None TECHNICAL EXPERT: reports: Breast cancer : reports: None HEENT: reports: None Psych: reports: Depression Musculoskeletal: reports: Fatigue Derm: reports: None MRSA Hx?: No - Past Surgical History /TECHNICAL EXPERT: reports: Mastectomy (double 03/21/2019) - Substance History Use: Uses substance without health or social issues: Alcohol (rarely) Social History - Living Situation Living arrangement: At home Living Situation: With spouse/s.o. Support System: Patient lives at home with her , who works full-time as well. 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 She works for 10-hour shifts. They have been for 12-1/2 years, met previously at work. She has 4 children, 1 is a stepson. They are quite active, ages 15, 9-1/2, 11-1/2, and 6.She has found it challenging with her pain and fatigue to manage. They are dependent on both there and comes, do have of some family nearby, her mother is still alive, but in [place]. Is challenged with her concerns for the future. Family History - Family History Family History: Mother: Alive and Well, Cancer (Recurrent Breast CA x 3; MS), Father: (esophageal CA 64), Sister: Alive and Well Medications/Allergies - Medications Home Medications: Ambulatory Orders Medication Instructions Recorded Confirmed DULoxetine [Cymbalta] 20 mg PO DAILY 08/20/20 06/06/21 Gabapentin 600 mg PO DAILY MDD tapering off 04/17/21 06/06/21 Palbociclib [Ibrance] 125 mg PO DAILY 05/14/21 06/06/21 dexAMETHasone [Decadron] 4 mg PO UD #14 tablet MDD one week 05/27/21 06/06/21 then decrease 2 mg Pregabalin [Lyrica] 50 mg PO TID MDD tapering up 06/06/21 06/06/21 Senna [Senokot] 1 - 2 tab PO DAILY PRN 06/06/21 06/06/21 oxyCODONE [Roxicodone] 5 mg PO Q4HR PRN 06/06/21 06/06/21 polyethylene glycoL 3350 [Miralax] 17 gm PO DAILY PRN 06/06/21 06/06/21 - Allergies Allergies/Adverse Reactions: Allergies Allergy/AdvReac Type Severity Reaction Status Date / Time No Known Drug Allergies Allergy Verified 04/18/21 06:52 Review of Systems - Constitutional Constitutional: reports: Fatigue, Weight loss (206). denies: Fever, Chills - Cardiovascular Cardiovascular: reports: Decr. exercise tolerance - Respiratory Respiratory: denies: SOB at rest - Gastrointestinal Gastrointestinal: reports: Constipation (intermittent), Good appetite - Genitourinary Genitourinary: reports: Frequency. denies: Incontinence - Musculoskeletal Musculoskeletal: reports: Back pain, Muscle aches, Stiffness, Muscle weakness, Joint pain (bilateral hip) - Integumentary Integumentary: reports: Dryness - Neurological Neurological: reports: Headache, Numbness - Psychiatric Psychiatric: reports: Depression, Anxiety - Endocrine Endocrine: reports: Other (hot flashes) - All Other Systems All Other Systems: reports: Reviewed and negative Physical Exam - Vital Signs Temperature: 97.3 C Pulse Rate: 65 Respiratory Rate: 16 O2 Saturation: 99 Blood Pressure: 104/68 - Physical Exam General Appearance: positive: Alert, Mild distress (pain) Eyes Bilateral: positive: Normal inspection ENT: positive: No signs of dehydration Neck: positive: Trachea midline Cardiovascular: positive: Regular rate & rhythm Respiratory: positive: No respiratory distress, Breath sounds nml Abdomen: positive: Non-tender, Soft, Other (pannus) Skin: positive: Pallor Extremities: positive: Full ROM, No pedal edema Neurologic/Psychiatric: positive: Oriented x3, Mood/affect nml, Other (ap propriately tearful) Palliative Care - POLST Patient has POLST: No POLST Status: Full Code Pain: Pain worsening, Severity (08/12), Comment (see HPI) Tiredness/Fatigue: Moderate (4-6) Drowsiness/Sedation: Moderate (4-6) Nausea: Mild (1-3) Anorexia: Mild (1-3) Dyspnea: None Depression: Mild (1-3) Anxiety: Mild (1-3) Feelings of wellbeing/Perceived Quality of Life: Fair, Worsening Sleep: Sleeps poorly Constipation: Yes, Opoid induced, Unmanaged Performance Status: Patient's pain is limiting as far as activity tolerance and ability to ambulate. Worsening pain with up hill, going up stairs, she does need to stand for 10 hours for her job. She this is becoming more complicated and difficult for her. She is able to manage her ADLs, but fatigue also limits her ability to manage ongoing household tasks. - Palliative Care Discussion: Patient does understand she has "stage IV" breast cancer, we did discuss this could have her range of implications, which makes it very difficult certainly emotionally to absorb. She is of course most worried about her children, her goals are to figure out how to be able to spend more time, and is hopefully wanting to pursue an avenue of financial support so she does not have to work.It has been more difficult as far as her pain, but also emotionally wanting to be with her family as a priority. We just acknowledged the difficulty it is to be a mother of 4 children anyway, balancing work, motherhood, and marriage. Now introducing serious illness, she reports she has been open with her children, with simple messaging. But has noted already some behavioral complications. I did introduce [facility] work, will bring her some resources regarding this. As well as some online support groups, given the complexity of her lives, it may be helpful to pursue outside support this way. Will initiate contact with the medical palliative care licensed social worker regarding patient's questions if able to address regarding her SSI/SSDI.Palliative care establishing rapport, with role for pain and symptom management and psychosocial support. Results - Lab Results Lab results reviewed: Yes Impression and Recommendations - Palliative Care Impression: This is a nikki 35-year-old woman with recurrent metastatic breast cancer to the bone, who presents with uncontrolled pain. Patient completing her staging work-up, pending MRI of the brain. Has initiated Ibrance, will be receiving Zoladex, Faslodex, and Zometa. She does also have a pending dental appointment prior to Zometa. Palliative care meeting with patient for pain and symptom management, psychosocial support, and anticipatory guidance. Recommendations/Counseling Done: 1. Pain of neoplastic origin. Patient would like to avoid opioids, though suspect will need combination given her neuropathic component and bone pain. She was initiated on dexamethasone 4 mg, has had only a slight improvement with this, given long-term effects will titrate her off as titrate up on pain medications. At this point in time would like to minimize sedation, will transition to pregabalin and spread neuropathic pain component over 24 hours, patient is being given instructions to start pregabalin 50 mg a.m. and late afternoon and continue gabapentin for now x5 days then pregabalin 100 mg a.m. 50 mg late afternoon and gabapentin 300 mg x 5 days then pregabalin 100 mg 3 times daily, will continue to titrate with discontinuation of gabapentin. Counseling provided regarding need for most likely opioid support, will start with short acting, will use oxycodone as has tolerated before with minimal sedation, instructed to experiment at home, take with food, can use half to a full tab, reminded her only to work 3 to 4 hours. Instructed her to take it to meet her functional goals particularly at work. Will follow up next week and titrate accordingly. Patient would benefit from long-acting. Did reach out to oncology, would like to wait on radiation referral, though may be appropriate in the future given patient's goal to minimize medications. 2. Constipation. This is opioid induced, counseling provided regarding bowel program, encourage instructed to get senna 8.6 mg tablets and MiraLAX, counseling provided regarding titration of medications. 3. Fatigue. This is multifactorial, including uncontrolled pain, initiation of medication, and underlying cancer diagnosis. Patient also sleeping poorly secondary to pain. We'll continue to monitor, goal to improve pain management so patient able to participate more in physical activity program. 4. Recurrent metastatic breast cancer to the bones. Patient initiating treatment, and finishing staging work-up. Support provided and education regarding disease, disease trajectory, will continue to follow. 5. Anxiety. This is multifactorial, patient has multiple stressors including financial, psychosocial with her children and changing roles with , worries about the future. Counseling provided to normalize current feelings of grief and loss with multiple changes and concerns for the future. We'll continue to access support resources for patient long-term. Given [email or web address] for support groups. 6. Advanced care planning. Counseling provided regarding hoping for the best, focusing on wellness as far as how best to support her physically and emotionally, but also the paradox of preparing for the future. We'll continue to work with patient on enlisting support, long-term planning, and [facility] work. 75 minutes with greater than 50% of this done in counseling regarding pain and symptom management and coordination of care with oncology team, anticipatory guidance, setting of rapport with palliative care support. Referral to medical palliative care licensed social worker to assist with financial goals.
== END 2021-06-05 09:46 | disposition home or self-care (01) ==
LOC: PC 09:45
PROVIDERS: ATTEND Nurse Practitioner Adult Health
DX: Z51.5 Encounter for palliative care (principal); G89.3 Neoplasm related pain (acute) (chronic); C79.51 Secondary malignant neoplasm of bone; C50.911 Malignant neoplasm of unspecified site of right female breast; Z79.899 Other long term (current) drug therapy; Z79.52 Long term (current) use of systemic steroids; K59.03 Drug induced constipation; T40.2X5A Adverse effect of other opioids, initial encounter; R53.0 Neoplastic (malignant) related fatigue; F41.9 Anxiety disorder, unspecified; Z59.9 Problem related to housing and economic circumstances, unspecified; Z63.79 Other stressful life events affecting family and household; Z86.16 Personal history of COVID-19
CPT/HCPCS: 99345

== ENCOUNTER 2021-06-10 10:00 | Outpatient (CLI) | payer BC | END 2021-06-10 10:01 | disposition critical access hospital (66) | LOC: EMS 10:00 | DX: M54.50 Low back pain, unspecified (principal); R42 Dizziness and giddiness; X50.0XXA Overexertion from strenuous movement or load, initial encounter; Y92.481 Parking lot as the place of occurrence of the external cause; I95.9 Hypotension, unspecified | CPT/HCPCS: A0425; A0427 ==

== ENCOUNTER 2021-06-10 10:13 | Emergency (ER) | payer BC ==
[2021-06-10] MEDS ORDERED: SODIUM CHLORIDE 0.9% 1,000 ML IV STA (10:25)
[2021-06-10] MEDS ORDERED: HYDROmorphone 1 MG/ML CARPUJECT IVP STA ×2 (10:25→14:15)
[2021-06-10] MEDS ORDERED: KETOROLAC 30 MG/ML VIAL IVP STA (10:25)
--- NOTE | 2021-06-10 10:29 | ED Physician Documentation ---
PD HPI BACK PAIN - Stated complaint Stated Complaint: LOW BACK PX - History obtained from History obtained from: Patient - History of Present Illness Timing - onset: How many hours ago (1), Today Timing - duration: Hours (1) Timing - details: Abrupt onset, Still present Location: Lower Quality: Pain, Spasm, Sharp Associated symptoms: No: Fever, Weakness, Numbness, Incontinent of urine Contributing factors: Lifting (she bent over to garbage pick up man case of water and felt onset of pop and pain in lumbar area. No numbness nor weakness.) Similar symptoms before: Has not had sx before (has had pelvic pain from bone mets from breast CA. 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: Breast cancer (with bone mets to pelvis.) : None HEENT: None Psych: Depression Musculoskeletal: Fatigue Derm: None - Past Surgical History /HATCHERY SUPERVISOR: Mastectomy (double 03/21/2019) - Present Medications Home Medications: Ambulatory Orders Medication Instructions Recorded Confirmed DULoxetine [Cymbalta] 20 mg PO DAILY 08/20/20 06/10/21 Gabapentin 600 mg PO DAILY MDD tapering off 04/17/21 06/10/21 Palbociclib [Ibrance] 125 mg PO DAILY 05/14/21 06/10/21 Pregabalin [Lyrica] 50 mg PO TID MDD tapering up 06/06/21 06/10/21 Senna [Senokot] 1 - 2 tab PO DAILY PRN 06/06/21 06/10/21 oxyCODONE [Roxicodone] 5 mg PO Q4HR PRN 06/06/21 06/10/21 polyethylene glycoL 3350 [Miralax] 17 gm PO DAILY PRN 06/06/21 06/10/21 Calcitonin [Fortical] 1 sprays JAYJAY DAILY #1 bottle 06/10/21 Fulvestrant [Faslodex] 250 mg IM ONCE 06/10/21 06/10/21 Goserelin [Zoladex] 3.6 mg SUBQ ONCE 06/10/21 06/10/21 dexAMETHasone [Decadron] 2 mg PO UD MDD one week then 06/10/21 06/10/21 decrease 2 mg dexAMETHasone [Decadron] 4 mg PO DAILY #5 tablet 06/10/21 methocarbamoL [Robaxin] 500 mg PO TID PRN #20 tablet 06/10/21 - Allergies Allergies/Adverse Reactions: Allergies Allergy/AdvReac Type Severity Reaction Status Date / Time No Known Drug Allergies Allergy Verified 06/10/21 10:18 - Social History Does the pt smoke?: No Smoking Status: Never smoker - POLST Patient has POLST: No PD ED PE NORMAL - Vitals Vital signs reviewed: Yes - General General: Alert and oriented X 3, Well developed/nourished, Other (appears in significant pain from lumbar area. ) - Cardiac Cardiac: RRR, No murmur - Respiratory Respiratory: No respiratory distress, Clear bilaterally - Abdomen Abdomen: Normal bowel sounds, Soft, Non tender, Non distended, No organomegaly - Back Back: No CVA TTP, Other (tender at thoracolumbar area of back to percussion. No rash nor sores. Sacral area with some tenderness. ) - Derm Derm: Normal color, Warm and dry - Extremities Extremities: No tenderness to palpate, No edema, No calf tenderness / cord - Neuro Neuro: Alert and oriented X 3, No motor deficit, No sensory deficit, Normal speech Results - Vitals Vitals: Vital Signs - 24 hr 06/10/21 06/10/21 06/10/21 10:18 10:39 12:25 Temperature 35.9 C L Heart Rate 75 69 67 Respiratory 14 16 14 Rate Blood Pressure 130/86 H 125/88 H 102/59 L O2 Saturation 100 100 99 06/10/21 06/10/21 14:00 14:52 Temperature Heart Rate 70 56 L Respiratory 16 18 Rate Blood Pressure 104/62 104/62 O2 Saturation 98 93 Oxygen O2 Source Room air - Labs Labs: Laboratory Tests 06/10/21 06/10/21 06/10/21 10:41 10:41 11:51 WBC 6.9 RBC 4.44 Hgb 13.9 Hct 39.8 MCV 89.6 MCH 31.3 H MCHC 34.9 RDW 12.1 Plt Count 206 MPV 9.3 Neut # (Auto) 5.8 Lymph # (Auto) 0.8 L Howard # (Auto) 0.2 Eos # (Auto) 0.1 Baso # (Auto) 0.1 Absolute Nucleated RBC 0.00 Nucleated RBC % 0.0 Sodium 139 Potassium 4.4 Chloride 104 Carbon Dioxide 25 Anion Gap 10.0 BUN 19 Creatinine 0.8 Estimated GFR (MDRD) 81 L Glucose 102 H Calcium 9.0 Total Bilirubin 0.5 AST 15 ALT 21 Alkaline Phosphatase 66 Total Protein 6.7 Albumin 3.9 Globulin 2.8 Albumin/Globulin Ratio 1.4 Lipase 38 Urine Color YELLOW Urine Clarity CLEAR Urine pH 7.5 Ur Specific [place] 1.015 Urine Protein NEGATIVE Urine Glucose (UA) NEGATIVE Urine Ketones NEGATIVE Urine Occult Blood NEGATIVE Urine Nitrite NEGATIVE Urine Bilirubin NEGATIVE Urine Urobilinogen 0.2 (NORMAL) Ur Leukocyte Esterase SMALL H Urine RBC 0-5 Urine WBC 6-10 H Ur Epithelial Cells RARE Transitional Ur Squamous Epith Cells RARE Squamous Urine Bacteria Rare Ur Microscopic Review INDICATED Urine Culture Comments INDICATED - Rads (name of study) abd/pelvic CT Radiology: Prelim report reviewed (prior pelvic mets with increasing size. Apparent new T12 met from recent imaging. No fracture. ), See rad report PD MEDICAL DECISION MAKING - ED course Complexity details: reviewed results (prior pelvic mets are increased in size. new T12 vertebral body met without obvious fracture. ), re-evaluated patient (improved pain close to baseline with IV meds. ), considered differential (concern for mets/pathologic fractures, given her history.), d/w patient Departure - Departure Disposition: 01 Home, Self Care Clinical Impression: Low back pain Qualifiers: Chronicity: acute Back pain laterality: midline Sciatica presence: without sciatica Qualified Code(s): M54.50 - Low back pain, unspecified Condition: Stable Record reviewed to determine appropriate education?: Yes Instructions: ED Low Back Pain Injury Prescriptions: dexAMETHasone [Decadron] 4 mg PO DAILY #5 tablet Calcitonin [Fortical] 1 sprays JAYJAY DAILY #1 bottle methocarbamoL [Robaxin] 500 mg PO TID PRN #20 tablet PRN Reason: Spasms Comments: Your CT scan shows the prior known pelvic metastases which are now a slightly larger than they had been. Apparently new lesion in the T12 vertebral body. This is where you are hurting so presumably its eroded into the nerve area or there may be some nonvisual mild compression within the vertebral body. The height and structure of the vertebral body on CT scan does not show an obvious compression fracture. Continue current medications. I consider adding a calcitonin nasal spray to help with firming of the bony growth around those areas. We can go short-term with some anti-inflammatories to try to help with any infl ammation that may be associated with the abrupt pain. Decadron daily for 5 days. You could add some muscle relaxant if some of the component is spasms. Otherwise continue your usual pain medications at home. Avoid any bending lifting or repetitive action in the back. Heat and gentle stretching are good. I transmitted your prescriptions to the [facility] pharmacy. Discharge Date/Time: 06/10/21 15:18
[2021-06-10] MEDS ORDERED: IOVERSOL 320 100 ML VIAL IVP ONE ×2 (10:41→12:59)
[2021-06-10 10:48] LABS: BASOPHILS # (AUTO) 0.1 10^3/uL (0.0-0.1); BASOPHILS % (AUTO) 0.7 %; EOSINOPHILS # (AUTO) 0.1 10^3/uL (0.0-0.7); HCT - HEMATOCRIT 39.8 % (37.0-47.0); HGB - HEMOGLOBIN 13.9 g/dL (12.0-16.0); LYMPHOCYTES # (AUTO) 0.8 10^3/uL (1.5-3.5); LYMPHOCYTES % (AUTO) 11.6 %; MEAN CORPUSCULAR HEMOGLOBIN 31.3 pg (27.0-31.0); MEAN CORPUSCULAR HGB CONC 34.9 g/dL (32.0-36.0); MEAN CORPUSCULAR VOLUME 89.6 fL (81.0-99.0); MEAN PLATELET VOLUME 9.3 fL (7.9-10.8); MONOCYTES # (AUTO) 0.2 10^3/uL (0.0-1.0); MONOCYTES % (AUTO) 2.2 %; NEUTROPHILS # (AUTO) 5.8 10^3/uL (1.5-6.6); NEUTROPHILS % (AUTO) 84.1 %; PLT - PLATELET COUNT 206 10^3/uL (130-450); RED BLOOD COUNT 4.44 10^6/uL (4.20-5.40); RED CELL DISTRIBUTION WIDTH 12.1 % (12.0-15.0); WHITE BLOOD COUNT 6.9 x10^3/uL (4.8-10.8)
[2021-06-10 11:05] LABS: ALBUMIN 3.9 g/dL (3.2-5.5); ALBUMIN/GLOBULIN RATIO 1.4 (1.0-2.2); BILIRUBIN,TOTAL 0.5 mg/dL (0.2-1.0); CREATININE 0.8 mg/dL (0.4-1.0); POTASSIUM 4.4 mmol/L (3.5-5.0); TOTAL PROTEIN 6.7 g/dL (6.7-8.2)
[2021-06-10 12:03] LABS: BILIRUBIN,URINE NEGATIVE (NEGATIVE); GLUCOSE, URINE (UA) NEGATIVE (NEGATIVE); KETONES,URINE (UA) NEGATIVE (NEGATIVE); LEUKOCYTE ESTERASE, URINE SMALL (NEGATIVE); NITRITE,URINE NEGATIVE (NEGATIVE); OCCULT BLOOD,URINE NEGATIVE (NEGATIVE); PH,URINE 7.5 PH (5.0-7.5); PROTEIN,URINE NEGATIVE (NEGATIVE); UROBILINOGEN,URINE 0.2 (NORMAL) E.U./dL (NORMAL)
[2021-06-10 12:17] LABS: CLARITY,URINE CLEAR (CLEAR)
[2021-06-10 12:18] LABS: EPITHELIAL CELLS,UR RARE Transitional /HPF (<= Few); RBC,URINE 0-5 /HPF (0-5); SQUAMOUS EPITHELIAL CELL,UR RARE Squamous (<= Few)
[2021-06-10 12:19] LABS: BACTERIA,URINE Rare /HPF (None Seen)
--- NOTE | 2021-06-10 13:51 | CT Report ---
PROCEDURE: CT abdomen and pelvis with contrast INDICATIONS: 35-year-old female with new onset pelvic pain, history of breast cancer CONTRAST: IV CONTRAST: Optiray 320 ml: 100 PO CONTRAST: *NO PO CONTRAST TECHNIQUE: After the administration of contrast, 5 mm thick sections acquired from the diaphragms to the sym physis. 5 mm thick coronal and sagittal reformats were acquired. For radiation dose reduction, the following was used: automated exposure control, adjustment of mA and/or kV according to patient size . COMPARISON: 05/01/2021, 12/22/2020 FINDINGS: Image quality: Excellent. ABDOMEN: Lung bases: Lung bases are clear. Heart size is normal. Solid organs: Ovoid 2.1 cm hypodense lesion noted in the right hepatic lobe. Remainder the liver and spleen unremarkable.. Gallbladder unremarkable. Biliary system is non dilated. Pancreas enhances n ormally. No adrenal nodules. Kidneys demonstrate normal size and enhancement, without hydronephrosi s. Peritoneum and bowel: Bowel loops demonstrate normal wall thickness and caliber. No free fluid or a ir. Moderate fecal debris present throughout the colon. Nodes and vessels: No retroperitoneal or mesenteric adenopathy by size criteria. Aorta and inferior vena cava are normal in size. Miscellaneous: Small periumbilical ventral hernia contains fat without bowel involvement. PELVIS: Genitourinary: Bladder wall thickness is normal. Miscellaneous: No inguinal hernias or adenopathy. Bones: Ovoid lytic lesion in the right iliac crest now measures 3.0 x 1.2 cm, previously 2.6 x 1.0 cm . Additional ovoid lytic lesion in the left iliac crest now measures 3.8 cm in length, previously 2.1 cm. Internal hyperdensity is also new. Lytic lesion in the T12 vertebral body measures 1.5 x 1.2 cm, new from the prior 6 mm sclerotic density in the head of the left femur is stable. IMPRESSION: 1. Osteolytic metastatic disease. Interval enlargement of right and left iliac lesions, and new T12 o steolytic lesion. Consider follow-up MRI of the thoracolumbar spine 2. Hypodense right hepatic lesion, 2.1 cm and appears solid. Consider follow-up hepatic protocol cont rast-enhanced MRI 3. Moderate fecal debris throughout the colon. No obstruction. Reviewed by: Guy Reed MD on 06/10/2021 12:49 PM AKST Approved by: Guy Reed MD on 06/10/2021 12:49 PM [facility] Station ID: [id number]
[2021-06-10] MEDS ORDERED: HYDROmorphone 2 MG/ML VIAL IVP STA (14:16)
[2021-06-10 14:42] VITALS: BP 104/62
== END 2021-06-10 15:18 | disposition home or self-care (01) ==
LOC: EDUNIT# → ED 10:13
DX: M54.50 Low back pain, unspecified (principal)
CPT/HCPCS: 36415; 74177; 80053; 81001; 83690; 85025; 87086; 96374; 96375; 96376; 99284; J1170; Q9967; 81003

== ENCOUNTER 2021-06-13 09:15 | Outpatient (CLI) | payer BC ==
--- NOTE | 2021-06-13 14:09 | CONSULTATION NOTE ---
Palliative Care Follow Up - Referral Referring Provider: Arline Moreno PA-C Time of Visit: 0915 45 min Referral setting: MAC Referral Reason: Pain of neoplastic origin/Met Breast CA/Depression - Information Sources Records reviewed: Previous records reviewed History/Review of Systems obtained from: Patient Exam limitations: No limitations - History of Present Illness Update Brief HPI Update: This is a nikki 35-year-old woman with metastatic breast cancer, she was at home, and felt a pop with pain, and was unable to get up off the floor on 06/10/21. She was by herself, called 911. She did spend most the day in the emergency room on Wednesday, unfortunately they did not reach out either to palliative care or to oncology during her stay there. She did have a CT scan which did show a ovoid 2.1 cm hypodense lesion noted in the right hepatic lobe, which is new, with recommendation of hepatic protocol contrast-enhanced MRI. She also had increase in her osteolytic metastatic disease with an interval enlargement of right and left iliac lesions, and new T12 osteolytic lesion, with recommendations consider follow-up MRI of the Thoracolumbar spine. Patient has had improvement in her pain overall, added some muscle relaxant for nighttime, which has been helpful. She has been titrating up on her pregabalin, which does appear to be helping, with minimal sedation. She is using her oxycodone for work, as it does not make her sedated, she does have to stand for long periods of time and provides mostly supervision is trying not to life anything. She is working on [employer] to be able to be on leave of absence as of end of month.I had reached out to Dr. Cook regarding urgent radiation oncology referral, given patient's worsening pain and concern for wanting to limit opioid load. Patient has started her Ibrance, has not had any nausea. Will be receiving her Faslodex on Wednesday. We are meeting day today to adjust her pain regimen, and continue to titrate up pregabalin, fill out her FMLA paperwork, and to review her other symptoms. Palliative care continue to provide support for pain and symptom management and building of rapport. Past Medical History: 89, advanced invasive ductal carcinoma right breast, T3 N3 M0 stage III ER/AL positive HER-2 negative, received neoadjuvant Adriamycin/Cytoxan/Taxol completed 03/2019, received bilateral mastectomy 03/23 with a 11.5 cm tumor and 4 out of 6 nodes positive. She did complete radiation 07/2019. She has been on Zoladex, tamoxifen, and most recently anastrozole. Social History - Living Situation Living arrangement: At home Living Situation: With spouse/s.o. Support System: Patient lives at home with her , who works full-time as well. He is trying to transition to some at home work. 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 This is been exacerbating her pain with the standing. They have been 12-1/2 years, met previously at work. She has 3 children and 1 stepson, they are quite active ages 15, 9-1/, 11 and half in 6. She does have family nearby, her mother is still alive. They are working with her to come up with a plan to be able to take off work. Medications/Allergies - Medications Home Medications: Ambulatory Orders Medication Instructions Recorded Confirmed DULoxetine [Cymbalta] 20 mg PO DAILY 08/20/20 06/13/21 Palbociclib [Ibrance] 125 mg PO DAILY 05/14/21 06/13/21 Pregabalin [Lyrica] 100 mg PO TID MDD tapering up 06/06/21 06/13/21 Senna [Senokot] 1 - 2 tab PO DAILY PRN 06/06/21 06/13/21 oxyCODONE [Roxicodone] 5 - 10 mg PO Q3HR PRN 06/06/21 06/13/21 polyethylene glycoL 3350 [Miralax] 17 gm PO DAILY PRN MDD bid 06/06/21 06/13/21 Calcitonin [Fortical] 1 sprays JAYJAY DAILY #1 bottle 06/10/21 06/13/21 Fulvestrant [Faslodex] 250 mg IM .MONTHLY 06/10/21 06/13/21 Goserelin [Zoladex] 3.6 mg SUBQ .MONTHLY 06/10/21 06/13/21 methocarbamoL [Robaxin] 500 mg PO TID PRN #20 tablet 06/10/21 06/13/21 - Allergies Allergies/Adverse Reactions: Allergies Allergy/AdvReac Type Severity Reaction Status Date / Time No Known Drug Allergies Allergy Verified 06/10/21 10:18 Review of Systems - Constitutional Constitutional: reports: Fatigue, Weight loss (206). denies: Fever, Chills - Ears, Nose & Throat Ears, Nose & Throat: reports: Dry mouth - Cardiovascular Cardiovascular: reports: Decr. exercise tolerance - Gastrointestinal Gastrointestinal: reports: Constipation (improved), Good appetite - Genitourinary Genitourinary: reports: Frequency. denies: Incontinence - Musculoskeletal Musculoskeletal: reports: Back pain, Muscle aches, Stiffness, Muscle weakness, Joint pain (bilateral hip) - Integumentary Integumentary: reports: Dryness - Neurological Neurological: reports: Headache, Numbness - Psychiatric Psychiatric: reports: Depression, Anxiety - Endocrine Endocrine: reports: Other (hot flashes) - All Other Systems All Other Systems: reports: Reviewed and negative Physical Exam - Vital Signs Temperature: 97.0 C Pulse Rate: 77 Respiratory Rate: 16 O2 Saturation: 98 Blood Pressure: 122/76 - Physical Exam General Appearance: positive: Alert, Mild distress (pain), Anxious Eyes Bilateral: positive: Normal inspection ENT: positive: No signs of dehydration Neck: positive: Trachea midline Cardiovascular: positive: Regular rate & rhythm Respiratory: positive: No respiratory distress Abdomen: positive: Non-tender, Soft, Other (pannus) Skin: positive: Pallor Extremities: positive: Full ROM, No pedal edema Neurologic/Psychiatric: positive: Oriented x3, Mood/affect nml, Weakness, Other (appropriately tearful) Palliative Care - POLST Patient has POLST: No Pain: Pain worsening, Location (back/bilateral hips/thoracic tenderness) Feelings of wellbeing/Perceived Quality of Life: Fair, Worsening Sleep: Variable sleep pattern Constipation: Yes, Opoid induced, Intermittent constipation Performance Status: Patient is fairly limited by her back pain, unable to bend or lift at this point in time. She is able to manage her ADLs, but is challenged as far as being a mother of 4 children and trying to work. Work involves being on her feet which does worsen her pain and discomfort. - Palliative Care Discussion: Patient somewhat frustrated with ED visit, as she felt they could have reached out to oncology or palliative care. She is feeling somewhat better, but is quite anxious as she does understand implications if she has disease in her liver. She reports she and her are just trying to take it a day to time, she is a little bit more realistic and appropriately tearful. Will need to revisit treatment plan, she is going to have a consult 06/26 at [facility]. Discussed she is going to need ongoing support, feels her family is going to help her fill care out the FMLA and will do SSI then SDI, with support financially from her family. She is feeling much more relieved regarding this, her priorities are to spend time with her children recognizing that she does have limited life expectancy and it may be shorter than she had originally thought. Psychosocial support provided, as well as resources for young cancer patients for online support groups and information boards. Impression and Recommendations - Palliative Care Impression: This is a 35-year-old woman with recurrent metastatic breast cancer to the bone, concern for metastatic disease to the liver. Her pain currently is improved control, though still has further staging work-up, including pending MRI of the brain. She has initiated Ibrance, will be receiving medications of Zoladex Faslodex and Zometa next week. She is making headway as far as her pain control. Palliative care meeting with patient for pain and symptom management, psychosocial support and anticipatory guidance. Recommendations/Counseling Done: 1. Pain of neoplastic origin. Patient like to avoid opioids, but has been able to tolerate oxycodone without any sedation. Given her neuropathic component and bone pain, she was trialed on dexamethasone without any results, has tapered off of this. We are tapering up on pregabalin, she is getting some relief with minimal sedation, will continue to monitor. Patient did have an acute pain crisis, she is being more careful with lifting and twisting, have been in touch with oncology, does have an urgent radiation oncology appointment. She does have some Robaxin for muscle spasms, requested she minimize use of this at bedtime only. We will continue to follow, may benefit from long-acting opioid. Reviewed with patient opioid safety, does not have Narcan in the home, though does carry her meds with her. We discussed given her young children in the home and concern overall, will order Narcan patient verbalized understanding. 2. Constipation. She is doing better with titrating the MiraLAX and senna, with relief of constipation. 3. Fatigue. This is multifactorial, will continue to monitor in the context of her cancer diagnosis, pain meds, and insomnia. 4. Recurrent metastatic breast cancer to the bones. Did reach out to oncology regarding new finding of scan, to be able to address that Wednesday visit. Support provided and ongoing information regarding disease. 5. Anxiety. This is multifactorial, we did discuss her plans for taking FMLA and absence from work along with financial planning. Did also discuss addressing support for her and her and children. Provided information on support groups, will continue to work with her regarding anxiety and depression as a treatment plan gets defined. 6. Advanced care planning, continue to work with anticipatory guidance regarding this, patient does recognize the seriousness of her illness. Looking at how to support her both physically emotionally, will continue to add support as needed. 45 minutes Review of ED notes, scans, [id number] with patient, counseling provided regarding pain and symptom management, anticipatory guidance, coordination of care with oncology team
== END 2021-06-13 09:16 | disposition home or self-care (01) ==
LOC: PC 09:15
PROVIDERS: ATTEND Nurse Practitioner Adult Health
DX: Z51.5 Encounter for palliative care (principal); G89.3 Neoplasm related pain (acute) (chronic); C50.911 Malignant neoplasm of unspecified site of right female breast; C79.51 Secondary malignant neoplasm of bone; Z17.0 Estrogen receptor positive status [ER+]; K76.9 Liver disease, unspecified; K59.00 Constipation, unspecified; R53.83 Other fatigue; F41.9 Anxiety disorder, unspecified
CPT/HCPCS: 99215

== ENCOUNTER 2021-06-17 12:13 | Outpatient (CLI) | payer BC ==
--- NOTE | 2021-06-17 15:01 | CONSULTATION NOTE ---
Palliative Care Follow Up - Referral Referring Provider: Arline Moreno PA-C Time of Visit: 1300 45 min Referral setting: MAC Referral Reason: Pain of neoplastic origin/Met Breast Cancer/Constipation - Information Sources Records reviewed: Previous records reviewed History/Review of Systems obtained from: Patient Exam limitations: No limitations - History of Present Illness Update Brief HPI Update: This is a nikki 35-year-old woman with recurrent metastatic breast cancer, with known mets to the bones now with new concern for hypodense hepatic lesion discovered on recent CT scan when went to ED for uncontrolled pain 06/10/21. She has met with oncology, at this point in time they will provide surveillance with a follow-up scan in 3 months. Her treatment plan has not changed, though are trying to urgently get her into her radiation, as her pain continues to escalate. Palliative care is seeing for pain and symptom management, patient has had increased pain with both neuropathic component as well as intense discomfort and spasms in her lower thoracic spine and lower lumbar/hip area. She has been started on pregabalin titrated up to 100 mg 3 times daily, patient is wishing to avoid opioids, though they have been effective. She is using oxycodone 5 mg titrating through the day to balance sedation and constipation. 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 Palliative care continue to work with paperwork to provide assistance in this transition. Patient is appropriately tearful with the implications if she does have further metastatic disease, her priorities are spending time with her children, and concern about the financial implications if she is unable to work. Patient's original diagnosis was in success 2018, she was a T3 N3 M0 stage III ER/positive HER-2 negative, received neoadjuvant chemo, bilateral mastectomy, and completed radiation 07/2019. She has been on Zoladex, tamoxifen and most recently anastrozole. She is currently on Faslodex, Ibrance, and is due to start Zometa. Social History - Living Situation Living arrangement: At home Living Situation: With spouse/s.o. Support System: Patient lives at home with her , who works full-time as well. They alternate shifts that she works evening/night, unfortunately she works 10-hour shifts. She is to stop this soon, with her escalating pain has been encouraged to minimize her standing as well as consider starting leave sooner than end of month. Patient has been 12-1/2 years, met previously at work. She has 1 stepson, and 3 young children. She has found it challenging to manage with her pain and fatigue. They are dependent on both incomes, her sister and mother coming up to help this next week, she is looking forward to their support. Medications/Allergies - Medications Home Medications: Ambulatory Orders Medication Instructions Recorded Confirmed DULoxetine [Cymbalta] 20 mg PO DAILY 08/20/20 06/17/21 Palbociclib [Ibrance] 125 mg PO DAILY 05/14/21 06/17/21 Pregabalin [Lyrica] 100 mg PO TID MDD tapering up 06/06/21 06/17/21 Senna [Senokot] 1 - 2 tab PO DAILY PRN 06/06/21 06/17/21 oxyCODONE [Roxicodone] 5 - 10 mg PO Q3HR PRN 06/06/21 06/17/21 polyethylene glycoL 3350 [Miralax] 17 gm PO DAILY PRN MDD bid 06/06/21 06/17/21 Calcitonin [Fortical] 1 sprays JAYJAY DAILY #1 bottle 06/10/21 06/17/21 Fulvestrant [Faslodex] 250 mg IM .MONTHLY 06/10/21 06/17/21 Goserelin [Zoladex] 3.6 mg SUBQ .MONTHLY 06/10/21 06/17/21 methocarbamoL [Robaxin] 500 mg PO TID PRN #20 tablet 06/10/21 06/17/21 - Allergies Allergies/Adverse Reactions: Allergies Allergy/AdvReac Type Severity Reaction Status Date / Time No Known Drug Allergies Allergy Verified 06/10/21 10:18 Review of Systems - Constitutional Constitutional: reports: Fatigue, Weight loss (206). denies: Fever, Chills - Ears, Nose & Throat Ears, Nose & Throat: reports: Dry mouth - Cardiovascular Cardiovascular: reports: Lightheadedness, Decr. exercise tolerance - Gastrointestinal Gastrointestinal: reports: Constipation (improved added Senna 1 tabs BID, inst. to increase), Good appetite - Genitourinary Genitourinary: reports: Frequency. denies: Incontinence - Musculoskeletal Musculoskeletal: reports: Back pain, Muscle aches, Stiffness, Muscle weakness, Joint pain (bilateral hip) - Integumentary Integumentary: reports: Dryness - Neurological Neurological: reports: Headache, Numbness - Psychiatric Psychiatric: reports: Depression, Anxiety - Endocrine Endocrine: reports: Other (hot flashes) - All Other Systems All Other Systems: reports: Reviewed and negative Physical Exam - Vital Signs Pulse Rate: 78 Respiratory Rate: 18 O2 Saturation: 100 Blood Pressure: 107/71 - Physical Exam General Appearance: positive: Alert, Mild distress (pain), Anxious Eyes Bilateral: positive: Normal inspection ENT: positive: No signs of dehydration Neck: positive: Trachea midline Respiratory: positive: No respiratory distress Abdomen: positive: Non-tender, Soft, Other (pannus) Skin: positive: Pallor Extremities: positive: Full ROM, No pedal edema, Other (pain behaviors, difficulty walking with pain with weight bearing; difficulty sitting upright without lumbar support) Neurologic/Psychiatric: positive: Oriented x3, Mood/affect nml, Weakness, Other (appropriately tearful) Palliative Care - POLST Patient has POLST: No Pain: Pain worsening, Location (mid thoracic area/lower lumbar/hips), Severity ( 5-6/10 sitting; 8/10 standing) Tiredness/Fatigue: Moderate (4-6) Drowsiness/Sedation: None Nausea: None Anorexia: None Dyspnea: Mild (1-3) Depression: Moderate (4-6) Anxiety: Severe (7-10) Feelings of wellbeing/Perceived Quality of Life: Fair, Acceptable, Worsening Sleep: Sleep improved Constipation: Yes, Opoid induced, Intermittent constipation Performance Status: Is forPatient is limited both by her activity tolerance, pain, and ability to bend forward and limitations on her ability lift. Quite fatigued, and is help ing with pain better controlled will be more functional. She is able to drive currently, as well as manage her ADLs but it is more difficult putting on shoes, bending, and tolerating long periods of standing. - Palliative Care Discussion: Discussion centered on patient's distressed regarding concerns for progressive disease, worsening pain, and need to transition to time away from work. Patient's main concerns and worries are related to her children, she has been in contact so that the counselor is now at the schools, it has been difficult as has to watch her children when she has appointments, versus being able to be together for the appointments. Trying to juggle home, children's emotions, as well as her own. She does have her mother and sister coming this week and is looking forward to some support and relief as they will be here about a week. She is still sludging through the paperwork regarding FMLA and leave of absence from work. She is appropriately tearful and distressed, call to radiation oncology in trying to facilitate earlier appointment, they will notify her as soon as they can if can move up appointment. Results - Lab Results Lab results reviewed: Yes Impression and Recommendations - Palliative Care Impression: This is a 35-year-old woman with recurrent metastatic breast cancer to the bone, concern for metastatic disease to the liver, did see oncology today, we are going to wait and evaluate response with CT scan in 3 months.She is still pending further staging work-up including MRI of the brain. She has initiated Ibrance, currently tolerating, is receiving Faslodex today, and pending Zometa. She is awaiting radiation oncology referral for escalating pain. Known increasing mets in her T12 spine new, and bilateral hip pain regarding her iliac crest. Palliative care meeting with patient for pain and symptom management, psychosocial support and anticipatory guidance Recommendations/Counseling Done: 1. Pain of neoplastic origin patient was hoping to avoid opioids, she has been able to tolerate oxycodone without any sedation, she is using frequently at small doses. Given her neuropathic component of her pain, has tapered up on her pregabalin 100 mg 3 times daily with some relief, minimal sedation. Call to radiation oncology to see if can move up appointment from 06/26, already urgent care given they are 2 weeks out. Did request that she be called if there is a cancellation. Patient does have worsening pain with standing, twisting and lifting, unfortunately this is required of her job. She does have some Robaxin for muscle spasms have requested she minimize use of this at bedtime only. Patient did obtain her Narcan, she does carry all her meds and Narcan in her bag. Reviewed opioid safety particularly in the context of her young children in the home. Will agree to look at long-acting opioid, after radiation appointment and treatment, may transition to long-acting morphine. Currently patient is tolerating oxycodone, encouraged to use more frequently for better pain control. Patient verbalized understanding. 2. Constipation. Patient ran out of senna, with increasing constipation, she has 3 new this, discussed increasing her senna with her increase opioid use, continue to use the MiraLAX, patient does verbalize understanding regarding titration. 3. Fatigue. This is multifactorial, will continue to monitor, she is sleeping better, but has been fairly exhausted trying to do work and balance her medical appointments. We will continue to evaluate, may benefit from some Ritalin in the long-term to manage, will continue to evaluate. 4. Recurrent metastatic disease breast cancer to the bones, possibly liver mets. Still completing staging scan. Did speak with oncology team we are both in agreement that radiation appointment most urgent, continue provide support and ongoing information regarding disease and disease management. 5. Anxiety. This is multifactorial, she is going to take some FMLA, did provide letter for absence of work. She does have her mother and sister coming to provide some support this next week, does have information on support groups from last visit. We will continue to work with her regarding anxiety and depression is treatment plan gets to find. Can titrate up Cymbalta if needed. 6. Advanced care planning. Did discuss with her will need to revisit long-term plan for her children, recognizing the seriousness of her illness. We looked at currently though most helpful is to get through her radiation, start her treatment, and figure out what "her new normal lives. We will continue to provide and add support as needed. 45 minutes with review of labs, scans, coordination of care with oncology team, [id number] for counseling for symptom management, titration of medications, coordination of care with radiation oncology, and anticipatory guidance
== END 2021-06-17 12:14 | disposition home or self-care (01) ==
LOC: PC 12:13
PROVIDERS: ATTEND Nurse Practitioner Adult Health
DX: Z51.5 Encounter for palliative care (principal); G89.3 Neoplasm related pain (acute) (chronic); C79.51 Secondary malignant neoplasm of bone; Z79.899 Other long term (current) drug therapy; Z79.818 Long term (current) use of other agents affecting estrogen receptors and estrogen levels; R53.83 Other fatigue; F41.9 Anxiety disorder, unspecified; F32.A Depression, unspecified; R93.2 Abnormal findings on diagnostic imaging of liver and biliary tract; R25.2 Cramp and spasm; Z79.891 Long term (current) use of opiate analgesic; K59.03 Drug induced constipation; T40.2X5A Adverse effect of other opioids, initial encounter; C50.919 Malignant neoplasm of unspecified site of unspecified female breast; Z92.21 Personal history of antineoplastic chemotherapy; Z92.3 Personal history of irradiation; Z90.13 Acquired absence of bilateral breasts and nipples
CPT/HCPCS: 99215

== ENCOUNTER 2021-07-01 14:45 | Outpatient (CLI) | payer BC ==
--- NOTE | 2021-07-01 18:52 | CONSULTATION NOTE ---
Palliative Care Follow Up - Referral Referring Provider: Arline Moreno PA-C Time of Visit: 1430 45 minutes Referral setting: MAC Referral Reason: Pain of neoplastic origin/Anxiety/Met Breast CA - Information Sources Records reviewed: Previous records reviewed History/Review of Systems obtained from: Patient Exam limitations: No limitations - History of Present Illness Update Brief HPI Update: This is a nikki 35-year-old woman with metastatic breast cancer, who has known bony mets. Unfortunately on 06/10/2021 she had exacerbation of her pain with ED visit and work up, which a CT scan showed a 2.1 cm hypodense lesion in the right hepatic lobe, with concern for new metastatic disease. She has also had increased interval of the right and left iliac lesions, with the left hip and lower spine with most acute pain. She was given an urgent referral to radiation oncology, and has had two treatments thus far, with expected 10 total. She did develop over this last week some sharp shooting pain and numbness across the left side of her lower back/above hip, after her fasoldex shots. She has tolerated the Ibrance fairly well, though does present today with WBC of 1.8 and neutrophils 0.7, concern for persistent or worsening neutropenia with the addition of radiation. She is currently on pregabalin 100 mg 3 times daily though she forgets to take the middle of the day dose for her neuropathic pain component, and using oxycodone 5 to 10 mg with about 6-8 tabs total spread out for managing breakthrough pain. She is using her methocarbamol 500 mg at bedtime, does have some tightness and does help with sleep. She is completing work, only has a couple more shifts, and then will be on FMLA and leave of absence. She is looking forward to being able to focus on her family, with her anxiety of looking into the future. Past Medical History: 09/21 Advanced invasive ductal carcinoma right breast, T3 N3 M0 stage III ER/AK positive HER-2 negative, she received neoadjuvant Adriamycin/Cytoxan/Taxol completed 03/23. Received bilateral mastectomy 03/23 with noted 11.5 cm tumor and 4 out of 6 nodes positive. She did complete radiation 07/2019. She has been on Zoladex since 05/25, tamoxifen and most recently anastrozole. Social History - Living Situation Living arrangement: At home Living Situation: With spouse/s.o. Support System: Patient lives at home with her , who works full-time as well. He is trying to transition for more hours at home. 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 She has been 12 and half years, they had met previously at work. She has 3 children and one stepson, they are quite active. She recently had her mother visiting as well as her sister and her family. She is relieved to have a plan in place. Medications/Allergies - Medications Home Medications: Ambulatory Orders Medication Instructions Recorded Confirmed DULoxetine [Cymbalta] 20 mg PO DAILY 08/20/20 07/01/21 Palbociclib [Ibrance] 125 mg PO DAILY 05/14/21 07/01/21 Pregabalin [Lyrica] 100 mg PO TID MDD tapering up 06/06/21 07/01/21 Senna [Senokot] 1 - 2 tab PO DAILY PRN 06/06/21 07/01/21 oxyCODONE [Roxicodone] 5 - 10 mg PO Q3HR PRN 06/06/21 07/01/21 polyethylene glycoL 3350 [Miralax] 17 gm PO DAILY PRN MDD bid 06/06/21 07/01/21 Fulvestrant [Faslodex] 250 mg IM .MONTHLY 06/10/21 07/01/21 Goserelin [Zoladex] 3.6 mg SUBQ .MONTHLY 06/10/21 07/01/21 methocarbamoL [Robaxin] 500 mg PO TID PRN #20 tablet 06/10/21 07/01/21 - Allergies Allergies/Adverse Reactions: Allergies Allergy/AdvReac Type Severity Reaction Status Date / Time No Known Drug Allergies Allergy Verified 06/10/21 10:18 Review of Systems - Constitutional Constitutional: reports: Fatigue, Weight loss (206). denies: Fever, Chills - Ears, Nose & Throat Ears, Nose & Throat: reports: Dry mouth - Cardiovascular Cardiovascular: reports: Lightheadedness, Decr. exercise tolerance - Respiratory Respiratory: denies: SOB at rest - Gastrointestinal Gastrointestinal: reports: Constipation (improved added Senna 1 tabs BID, inst. to increase), Nausea (reminded to take pain meds with food), Good appetite - Genitourinary Genitourinary: reports: Frequency. denies: Incontinence - Musculoskeletal Musculoskeletal: reports: Back pain, Muscle aches, Stiffness, Muscle weakness, Joint pain (bilateral hip; left greater than right) - Integumentary Integumentary: reports: Dryness - Neurological Neurological: reports: Headache (intermittent using ibuprofen with good response), Numbness (worening left back/hip area radiating through thigh) - Psychiatric Psychiatric: reports: Depression, Anxiety - Endocrine Endocrine: reports: Other (hot flashes worsening) - Hematologic/Lymphatic Hematologic/Lymph: denies: Recurrent infections (neutropenia worsening) - All Other Systems All Other Systems: reports: Reviewed and negative Physical Exam - Vital Signs Temperature: 36.1 C Pulse Rate: 76 Respiratory Rate: 18 O2 Saturation: 99 Blood Pressure: 111/73 - Physical Exam General Appearance: positive: Alert, Mild distress (with pain) Eyes Bilateral: positive: No scleral icterus ENT: positive: No signs of dehydration Neck: positive: Trachea midline Respiratory: positive: No respiratory distress Abdomen: positive: Soft, Obese Skin: positive: Pallor, Dryness, Bruising (from shots) Extremities: positive: Full ROM, No pedal edema, Other (ataxic gait with walk) Neurologic/Psychiatric: positive: Oriented x3, Depressed mood/affect Palliative Care - POLST Patient has POLST: No POLST Status: Full Code Pain: Pain unchanged, Location (see hpi), Severity (5/10) Tiredness/Fatigue: Moderate (4-6) Drowsiness/Sedation: Moderate (4-6) Nausea: Mild (1-3) Anorexia: None Dyspnea: None Depression: None Anxiety: Mild (1-3) Feelings of wellbeing/Perceived Quality of Life: Fair, Worsening Sleep: Variable sleep pattern Constipation: Yes, Opoid induced, Intermittent constipation Performance Status: Patient still limited by her pain, endurance, and fatigue. She is able to manage her ADLs, does have difficulty bending forward or participate in household tasks. She is hopeful with better pain management to have improved functional status. - Palliative Care Discussion: Discussion focused on patient's concerns regarding her children, uncertainty of her diagnosis, long-term planning. She is quite excited to be done with work, started to explore things that would bring her abraham and creating a new normal. Reviewed would wait till done with radiation, to finalize pain plan to minimize side effects and maximize relief balanced with pill burden. She did have a nice visit with her mother and sister, feeling supported. Sharing struggles regarding the balance of being a mom and having serious illness, appropriate grief and loss reaction. Results - Lab Results Lab results reviewed: Yes Impression and Recommendations - Palliative Care Impression: This is a 35-year-old woman with recurrent metastatic breast cancer to the bone, concerning metastatic disease to the liver. Her pain currently is moderately controlled, is receiving radiation for improved outcomes. She still has further staging work-up including pending MRI of the brain. She has initiated Ibrance, with now neutropenia. She is almost finished with her work which will decrease multiple stressors. Palliative care continue to meet with patient for pain and symptom management, psychosocial support and anticipatory guidance Recommendations/Counseling Done: 1. Pain of neoplastic origin. Patient is using oxycodone appropriately, will transition to long-acting after finished with radiation and able to evaluate response. She is currently on pregabalin, difficulty remembering the third dose, is prescribed pregabalin 100 mg 3 times daily, will switch to 150 twice daily, patient will evaluate if too sedated in the morning, or to continue to 100 mg 3 times daily. Will order either 150s or 100 mg tabs this Wednesday. Patient is using Robaxin for muscle spasms at bedtime, has been requested to minimize this at bedtime only. Patient keeps her opioids with her for safety. She is doing fairly well overall, hoping to decrease stressors and often exacerbate her pain. 2. Constipation. She is still continue to struggle with finding the balance of MiraLAX and senna, counseling provided again regarding titration of MiraLAX and senna for soft regular bowel movements, as she does get increased pain and discomfort with constipation it exacerbates pain on left side. 3. Fatigue. This is multifactorial, will continue to monitor in the context of her cancer diagnosis, pain meds and insomnia. Patient still has somewhat of an ataxic gait, if pain better controlled recommended increase activity as tolerated. 4. Recurrent metastatic breast cancer to the bone. She is continuing Ibrance, Faslodex, and Zoladex. She is to initiate Zometa this week. She will receive 10 treatments of radiation, she has had 2 of 10. 5. Anxiety. This is multifactorial, she will be finishing work, she had a nice visit from her sister and mother this last week with many distracting activities. She is looking forward to figuring out her new normal, will continue to work with her on [employer] work, long-term planning, and support for the future. Patient still has quite a bit of tearfulness, suspect may benefit from either change or increase in her Cymbalta. 6. Advanced care planning continue to work with anticipatory guidance regarding this, patient does recognize the seriousness of her illness, continue looking to support her both physically and emotionally and continue as support as identified. 45 minutes review of labs, oncology note, radiation oncology notes. [id number] with patient for pain and symptom management counseling psychosocial support and anticipatory guidance.
== END 2021-07-01 14:46 | disposition home or self-care (01) ==
LOC: PC 14:45
PROVIDERS: ATTEND Nurse Practitioner Adult Health
DX: Z51.5 Encounter for palliative care (principal); G89.3 Neoplasm related pain (acute) (chronic); C79.51 Secondary malignant neoplasm of bone; C50.911 Malignant neoplasm of unspecified site of right female breast; K59.03 Drug induced constipation; T40.2X5A Adverse effect of other opioids, initial encounter; R53.83 Other fatigue; F41.9 Anxiety disorder, unspecified; Z79.818 Long term (current) use of other agents affecting estrogen receptors and estrogen levels; Z79.899 Other long term (current) drug therapy; Z79.891 Long term (current) use of opiate analgesic
CPT/HCPCS: 99215

== ENCOUNTER 2021-07-17 09:57 | Outpatient (CLI) | payer BC ==
--- NOTE | 2021-07-17 21:16 | CONSULTATION NOTE ---
Palliative Care Follow Up - Referral Referring Provider: Arline Moreno PA-C Time of Visit: 10:00 45 minutes Referral setting: MAC Referral Reason: Pain of neoplastic origin/Anxiety/Reflux/Met Breast CA - Information Sources Records reviewed: Previous records reviewed History/Review of Systems obtained from: Patient Exam limitations: No limitations - History of Present Illness Update Brief HPI Update: This is a nikki 35-year-old woman with metastatic breast cancer with known bony mets, and possibly liver. She was started on Ibrance and Faslodex 06/24 with ongoing ovarian suppression of Zoladex. She has had escalating pain in her hips, lower spine, which did respond well to ideation, she has since completed. Her Ibrance was put on hold during this time secondary to concern for bone marrow suppression.She also describes that radiates through her left hip/thigh/buttock area, originally concerned may be injury from shot, or possibly disc disease. Has continued to improve some, but discomfort does worsen with ambulation. 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 She is unable to bend without pain, some pain with twisting. She is pleased though with response to radiation. Patient's other concern, if she is having some difficulty when she swallows feeling like things pass at the junction of her esophagus and stomach, she is quite concernedAs her father had esophageal cancer, which he has since passed at a young age in 50s. She reports he had swallowing problems and did not follow through. I am suspect that this may have something to do though with where her radiation field was as had been recent symptom since/during radiation, or could be stress-induced ulcers/gastritis. Does appear she is describing somewhat of a constellation of symptoms more attuned with GERD though does not perceive she has heartburn. We agreed to try some omeprazole 20 mg daily x2 weeks to see if it improves, as she does also provide her somewhat low-grade nausea. She has not had any choking with it, no are any vomiting. Past Medical History: 09/21 advanced invasive ductal carcinoma right breast, T3 N3 M0 stage III ER/OR positive HER-2 negative, received neoadjuvant Adriamycin/Cytoxan/Taxol completed 03/23. Received bilateral mastectomy 03/23 with noted 11.5 cm tumor and 4 out of 6 nodes positive. She did complete radiation 07/2019. She has been on Zoladex since 05/25, and also tamoxifen and most recently anastrozole Social History - Living Situation Living arrangement: At home Living Situation: With spouse/s.o. Support System: Patient lives at home with her , who works full-time as well. They have 3 children together, and a stepson who comes every other week who is 15.She is now on leave of absence/FMLA. She does have some financial support through the middle of summer, and will be able to get Social Security disability in January. She is quite an active family, has soccer going on, unfortunately right now most everybody has been home on and off with colds, she does report some viral cold symptoms as well. Medications/Allergies - Medications Home Medications: Ambulatory Orders Medication Instructions Recorded Confirmed DULoxetine [Cymbalta] 20 mg PO DAILY 08/20/20 07/18/21 Palbociclib [Ibrance] 125 mg PO DAILY MDD HOLD 05/14/21 07/18/21 Senna [Senokot] 1 - 2 tab PO DAILY PRN 06/06/21 07/18/21 oxyCODONE [Roxicodone] 5 - 10 mg PO Q3HR PRN 06/06/21 07/18/21 polyethylene glycoL 3350 [Miralax] 17 gm PO DAILY PRN MDD bid 06/06/21 07/18/21 Fulvestrant [Faslodex] 250 mg IM .MONTHLY 06/10/21 07/18/21 Goserelin [Zoladex] 3.6 mg SUBQ .MONTHLY 06/10/21 07/18/21 - Allergies Allergies/Adverse Reactions: Allergies Allergy/AdvReac Type Severity Reaction Status Date / Time No Known Drug Allergies Allergy Verified 06/10/21 10:18 Review of Systems - Constitutional Constitutional: reports: Fatigue (persistent). denies: Fever, Chills - Ears, Nose & Throat Ears, Nose & Throat: reports: Dry mouth - Cardiovascular Cardiovascular: reports: Lightheadedness, Decr. exercise tolerance - Respiratory Respiratory: denies: SOB at rest - Gastrointestinal Gastrointestinal: reports: Nausea (reminded to take pain meds with food; intermittent low grad), Early satiety (declined with swallowing problems). denies: Constipation - Genitourinary Genitourinary: reports: Frequency. denies: Incontinence - Musculoskeletal Musculoskeletal: reports: Back pain, Muscle aches, Stiffness, Muscle weakness. denies: Joint pain (improved) - Integumentary Integumentary: reports: Dryness - Neurological Neurological: reports: Headache (intermittent using ibuprofen with good response), Numbness (improving left back/hip area radiating through thigh) - Psychiatric Psychiatric: reports: Depression, Anxiety - Endocrine Endocrine: reports: Other (hot flashes worsening) - Hematologic/Lymphatic Hematologic/Lymph: reports: Anemia - All Other Systems All Other Systems: reports: Reviewed and negative Physical Exam - Vital Signs Pulse Rate: 90 Respiratory Rate: 18 O2 Saturation: 98 Blood Pressure: 126/88 - Physical Exam General Appearance: positive: No acute distress, Alert Eyes Bilateral: positive: No scleral icterus ENT: positive: No signs of dehydration Neck: positive: Trachea midline Cardiovascular: positive: Regular rate & rhythm Respiratory: positive: No respiratory distress, Breath sounds nml Abdomen: positive: Soft, Obese Skin: positive: Pallor, Dryness Extremities: positive: Full ROM, No pedal edema, Other (walking better) Neurologic/Psychiatric: positive: Oriented x3, Mood/affect nml, Flat affect Palliative Care - POLST Patient has POLST: No POLST Status: Full Code Pain: Pain improved, Comment (see HPI) Tiredness/Fatigue: Mild (1-3) Drowsiness/Sedation: Mild (1-3) Nausea: None Anorexia: Mild (1-3) Dyspnea: None Depression: None Anxiety: None Feelings of wellbeing/Perceived Quality of Life: Good, Acceptable, Improved Sleep: Sleeps well (up one time a night to void) Constipation: Yes, Opoid induced, Intermittent constipation Performance Status: Patient with improved walking, no further has ataxic gait. She still has some p ain with pushing ambulation for long distances. She still has significant activity tolerance and fatigue, but is able to manage her ADLs. She is feeling tired most of the time, but also has multiple children to attend to, continue to try and keep up activities, has been busy week with spring break and soccer practices. - Palliative Care Discussion: Discussion centered on patient's current managing at home, trying to find new normal, managing her children in the context of living with serious illness. She is hoping to have a break, with children back in school, and waiting for people to get over their viral illnesses. Continues to share her struggles regarding the balance of being a mom and living in the unknown. Is very anxious about her new swallowing problems, will continue to monitor, though most likely side effect of radiation/medications/stress. We will continue meet with patient on a regular basis to provide psychosocial support and titrate medications.Palliative care building rapport for support Results - Lab Results Lab results reviewed: Yes Lab and Imaging Results: Due for labs next Wednesday, to restart Ibrance if bone marrow function improved Impression and Recommendations - Palliative Care Impression: This is a nikki 35-year-old woman with recurrent metastatic breast cancer to the bone, with concern regarding disease to the liver. Her pain currently is controlled with improvement of receiving radiation. She just had her last staging component MRI of the brain, which was negative. She will restart Ibrance when her counts recover. Patient continues with multiple stressors. Palliative care continue meet with patient for pain and symptom management, psychosocial support and anticipatory guidance Recommendations/Counseling Done: 1. Pain of neoplastic origin. Patient is appropriate in her oxycodone use, using it for breakthrough pain management. She is still only using 3-4 doses daily for breakthrough pain, with improved management in her pain, this is mostly for persistent discomfort in her left hip. She is on pregabalin 100 mg 3 times daily, unfortunately ran out, discussed need to contact provider to not run out of any medications in the context of concern for withdrawals. Patient verbalized understanding. Patient is no longer needing to use the methocarbamol for spasms. Patient does keep her opioids on her for safety, she is doing fairly well overall. 2. Constipation. She continues to work with MiraLAX and senna, titrating appropriately, has intermittent constipation but is able to manage. 3. Reflux. Patient does describe symptoms of reflux, most likely attributed to side effects of radiation/stress/possible ulcers. Patient to start omeprazole 20 mg daily for 2 weeks, will reevaluate if effective, if not can refer on if needed. Patient reassured most often this will also address her complaints of low-grade gnawing and nausea. 4. Fatigue. This is multifactorial, including in the context of her cancer diagnosis, recent completion of radiation, pain meds, as well as her Ibrance. Did encourage to increase activity as possible, with short progressive ambulation to balance between activity and monitoring exacerbation of pain. Also addressed and recommended looking at dietary support for maximum wellness. 5. Anxiety. This is multifactorial, she has completed work, unfortunately now she has children with colds including some mild symptoms herself. She is looking forward to figuring out her "new normal", will continue to help patient move forward on [facility] work, long-term planning and support for the future. Patient appropriately and intermittent the tearful. 6. Advanced care planning. Continue work with anticipatory guidance, patient appropriately concerned regarding the seriousness of her illness and impact on her future. We will continue support patient with symptom management emotionally. 45 minutes Review of labs, oncology notes, scans, [id number] with patient for pain and symptom management, psychosocial support and anticipatory guidance.
== END 2021-07-17 09:58 | disposition home or self-care (01) ==
LOC: PC 09:57
PROVIDERS: ATTEND Nurse Practitioner Adult Health
DX: Z51.5 Encounter for palliative care (principal); G89.3 Neoplasm related pain (acute) (chronic); C50.919 Malignant neoplasm of unspecified site of unspecified female breast; C79.51 Secondary malignant neoplasm of bone; K59.03 Drug induced constipation; T40.2X5A Adverse effect of other opioids, initial encounter; K21.9 Gastro-esophageal reflux disease without esophagitis; R53.83 Other fatigue; F41.9 Anxiety disorder, unspecified
CPT/HCPCS: 99215

== ENCOUNTER 2021-07-29 12:16 | Outpatient (CLI) | payer BC ==
--- NOTE | 2021-07-29 17:13 | CONSULTATION NOTE ---
Palliative Care Follow Up - Referral Referring Provider: Arline Moreno PA-C Time of Visit: 1110 45 minutes Referral setting: MAC Referral Reason: Pain of neoplastic origin/anxiety/reflux/Met Breast CA - Information Sources Records reviewed: Previous records reviewed History/Review of Systems obtained from: Patient Exam limitations: No limitations - History of Present Illness Update Brief HPI Update: This is a nikki 35-year-old woman with metastatic breast cancer with known bony mets, possible liver. She is restarting her Ibrance, was put on hold during her radiation treatments for bone pain, her pain is continue to improve. She reports her background pain has pretty much resolved, still has some sharp shoo ting pain in her left hip thigh area, has improved some, but discomfort does worsen with standing or ambulation. She does have neuropathy in her mastectomy site on her right arm, has been treated in the past, she is on pregabalin and it has manage this without further difficulty. She continues with hot flashes, mood swings, anxiety somewhat improved though circumstances do exacerbate this. She has had trouble being adherent to the pregabalin 100 3 times daily, when discussed increasing to 150 3 times daily, we discussed starting just with pregabalin 150 mg twice daily for total dose of 300 mg to see if this is helpful. She is unable to bend without pain, has some pain with twisting. Patient's swallowing issues and reflux, have improved significantly on the omeprazole 20 mg, will continue as it also has helped with her low-grade nausea for another 2 weeks. Past Medical History: 619 advanced invasive ductal carcinoma right breast,, T3 N3 M0 stage III/ER/SC positive H HER2 negative, received neoadjuvant AG is a myosin/Cytoxan/Taxol completed 03/23. Received bilateral mastectomy 03/23 with noted 11.5 cm tumor and 4 out of 6 nodes positive. She did complete radiation 07/2019. She has been on Zoladex since 05/25 and tamoxifen, most recently anastrozole previous to recurrence of disease Social History - Living Situation Living arrangement: At home Living Situation: With spouse/s.o. Support System: Lives at home with her , who works full-time. They have 3 children together and a stepson whom she oversees to. She is now on leave of absence/FMLA. Has been quite busy with an active family, certainly to be expected children's fluctuating moods and reactions to changes, patient herself has less energy to deal with parenting but is doing a very nice job and trying to remain consistent. She does report there have been viral cold symptoms but these have been improving with kids. Medications/Allergies - Medications Home Medications: Ambulatory Orders Medication Instructions Recorded Confirmed DULoxetine [Cymbalta] 20 mg PO DAILY 08/20/20 07/29/21 Palbociclib [Ibrance] 125 mg PO DAILY MDD day -05/14/21 07/29/21 cycle Senna [Senokot] 1 - 2 tab PO DAILY PRN 06/06/21 07/29/21 oxyCODONE [Roxicodone] 5 - 10 mg PO Q3HR PRN 06/06/21 07/29/21 polyethylene glycoL 3350 [Miralax] 17 gm PO DAILY PRN MDD bid 06/06/21 07/29/21 Fulvestrant [Faslodex] 250 mg IM .MONTHLY 06/10/21 07/29/21 Goserelin [Zoladex] 3.6 mg SUBQ .MONTHLY 06/10/21 07/29/21 Omeprazole Magnesium 20 mg PO DAILY 07/29/21 07/29/21 Ondansetron [Zuplenz] 4 mg PO Q6HR PRN 07/29/21 07/29/21 Pregabalin [Lyrica] 150 mg PO BID 07/29/21 07/29/21 - Allergies Allergies/Adverse Reactions: Allergies Allergy/AdvReac Type Severity Reaction Status Date / Time No Known Drug Allergies Allergy Verified 06/10/21 10:18 Review of Systems - Constitutional Constitutional: reports: Fatigue (persistent). denies: Fever, Chills - Ears, Nose & Throat Ears, Nose & Throat: reports: Dry mouth - Cardiovascular Cardiovascular: reports: Lightheadedness, Decr. exercise tolerance - Respiratory Respiratory: reports: SOB with exertion. denies: SOB at rest - Gastrointestinal Gastrointestinal: reports: Nausea (reminded to take pain meds with food; intermittent low grad), Early satiety (declined with swallowing problems), Other (food aversions). denies: Constipation, Reflux/heartburn (improved with omeprazole) - Genitourinary Genitourinary: reports: Frequency. denies: Incontinence - Musculoskeletal Musculoskeletal: reports: Back pain, Muscle aches, Stiffness, Muscle weakness. denies: Joint pain (improved) - Integumentary Integumentary: reports: Dryness - Neurological Neurological: reports: Headache (intermittent using ibuprofen with good response), Numbness (improving left back/hip area radiating through thigh) - Psychiatric Psychiatric: reports: Depression, Anxiety - Endocrine Endocrine: reports: Other (hot flashes worsening) - Hematologic/Lymphatic Hematologic/Lymph: reports: Anemia - All Other Systems All Other Systems: reports: Reviewed and negative Physical Exam - Physical Exam General Appearance: positive: No acute distress, Alert Eyes Bilateral: positive: No scleral icterus ENT: positive: No signs of dehydration Neck: positive: Trachea midline Cardiovascular: positive: Regular rate & rhythm Respiratory: positive: No respiratory distress Abdomen: positive: Soft, Obese Skin: positive: Pallor, Dryness Extremities: positive: Full ROM, No pedal edema, Other (walking better) Neurologic/Psychiatric: positive: Oriented x3, Mood/affect nml, Flat affect Palliative Care - POLST Patient has POLST: No POLST Status: Full Code Pain: Pain improved, Comment (see HPI) Feelings of wellbeing/Perceived Quality of Life: Good, Acceptable, Improved Sleep: Sleep improved, Variable sleep pattern Constipation: Yes, Opoid induced, Managed Performance Status: Patient with improved walking, still has pain when pushing ambulation for long distances. She does have poor activity tolerance and fatigue but is able to manage her ADLs. She has multiple children activities to attend to, continue trying to keep up. Has been a busy week for her. - Palliative Care Discussion: Discussion centered again on patient's current managing at home, working with her kids managing children in the context of living with serious illness. Continues to share her struggles regarding thoughts of being mom and living within no one. Is very anxious at times but is feeling better overall. Continue to meet with patient on regular basis to provide psychosocial support, titrate medications. Has been stressful for her and the 2 of them, encouraged to take some time out if possible to focus on the relationship. Results - Lab Results Lab results reviewed: Yes Impression and Recommendations - Palliative Care Impression: This is a 35-year-old woman with recurrent metastatic breast cancer to the bone, with concern regarding disease to the liver. Her pain continues to improve, though continues with persistent fatigue. She has had improvement in her GERD symptoms. Palliative care continue to provide support for pain and symptom management, psychosocial support and anticipatory guidance. Recommendations/Counseling Done: 1. Pain of neoplastic origin. Patient is appropriate in her use, continues to need less oxycodone, reports 1-2 times a day. She is having difficulty adhering to pregabalin 100 mg 3 times daily secondary to schedule, discussed transitioning to 150 mg twice daily. We will trial this for improved adherence, in meantime we will continue 100 mg 3 times daily for 300 mg total dosing. 2. Constipation. She is working with MiraLAX and senna titrating appropriately has not had further constipation. 3. Reflux. Patient most likely is attributed side effects of radiation/stress. Patient did start omeprazole 20 mg daily this has improved, will continue for another 2 weeks and reevaluate as it is also has assisted with her low-grade nausea. 4. Fatigue. This is multifactorial including in the context of her cancer diagnosis, completion of radiation/pain meds as well as her Ibrance is to restart. Counseling provided again to increase activity as possible short progressive ambulation and balance between activity and monitoring exacerbation of pain 5. Anxiety. This is multifactorial, patient has completed work and now is spending most of her time focusing on motherhood and tasks around her illness. Has had a few anxiety producing news points, but is trying to find her new normal, it is difficult trying to meet her needs as well as all her children's. Encouraged consider some joint counseling with her daughter who is having most difficult time, as well as time away with her . 6. Advance care planning. Continue to work on anticipatory guidance, will encourage again to connect with support groups. We will continue to support patient with pain and symptom management emotionally,and start to introduce [facility] work. 45 minutes with review of the labs, oncology notes, [id number] with patient for pain and symptom management, psychosocial support and anticipatory guidance
== END 2021-07-29 12:17 | disposition home or self-care (01) ==
LOC: PC 12:16
PROVIDERS: ATTEND Nurse Practitioner Adult Health
DX: Z51.5 Encounter for palliative care (principal); G89.3 Neoplasm related pain (acute) (chronic); R53.0 Neoplastic (malignant) related fatigue; K21.9 Gastro-esophageal reflux disease without esophagitis; F41.9 Anxiety disorder, unspecified; R11.0 Nausea; R06.09 Other forms of dyspnea; G62.9 Polyneuropathy, unspecified; C79.51 Secondary malignant neoplasm of bone; C50.911 Malignant neoplasm of unspecified site of right female breast; Z17.0 Estrogen receptor positive status [ER+]; Z79.818 Long term (current) use of other agents affecting estrogen receptors and estrogen levels; Z79.899 Other long term (current) drug therapy; Z63.79 Other stressful life events affecting family and household; Z90.13 Acquired absence of bilateral breasts and nipples; Z92.3 Personal history of irradiation
CPT/HCPCS: 99215

== ENCOUNTER 2021-08-26 09:43 | Outpatient (CLI) | payer BC ==
--- NOTE | 2021-08-26 14:48 | CONSULTATION NOTE ---
Palliative Care Follow Up - Referral Referring Provider: Arline Moreno PA-C Time of Visit: 1115 45 minutes Referral setting: MAC Referral Reason: Pain of neoplastic origin/Met Breast Cancer/Depression/Anxiety - Information Sources Records reviewed: Previous records reviewed History/Review of Systems obtained from: Patient Exam limitations: No limitations - History of Present Illness Update Brief HPI Update: This is a nikki 35-year-old woman with metastatic breast cancer with known bony mets, possible liver. She has continued to improve as far as her pain management, she still has some residual pain in her left iliac crest area, but does not radiate as before, and currently only using oxycodone 5 mg 1-3 tabs in 24 hours, with 1 at night, and one in preparation for increased activity. 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 She continues to report some hot flashes, fluctuating mood, has been more compliant with the pregabalin with new dosing at 150 mg twice daily. She does have some limitations as far as being able to bend without pain, and pain with twisting but overall continues to improve. She reports her severity of 10 to every 10. She still continue to take 1 at night because of pressure on her hips increases pain, but usually does not need repeat in the middle of the night. Patient still has some intermittent swallowing difficulties, but he is continue to improve. She has not needed to continue the omeprazole, as it has resolved. She is keeping her constipation under control. She has been very busy as a matter for children, and has busy days, but is less stressed and not working. She tries to think plans, I as she is feeling good right now, this does cause some tension with her as he does have increased stress at work. There is some anxiety related to her [place] income will be running out soon, at the end of September and will be exactly for her Social Security disability taps in. Past Medical History: 09/21 advanced invasive ductal carcinoma right breast, T3 N3 M0 stage III ER OR positive HIT negative. Received bilateral mastectomy 03/23 with noted 11.5 cm tumor and 4 out of 6 nodes positive. She did complete radiation 07/2019. She has been on Zoladex since 05/25. Social History - Living Situation Living arrangement: At home Living Situation: With spouse/s.o. 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 She is now on leave of absence/FMLA. She has been quite busy with an active family, carpooling and soccer practice, making plans to go camping. Patient does find she has less energy to deal with turning. Continue to remain consistent, having some increased anxiety regarding 's stress, his hope is to move into the home to work, she does have some anxiety about insurance issues. Medications/Allergies - Medications Home Medications: Ambulatory Orders Medication Instructions Recorded Confirmed DULoxetine [Cymbalta] 20 mg PO DAILY 08/20/20 08/26/21 Palbociclib [Ibrance] 125 mg PO DAILY MDD day 1-05/14/21 08/26/21 cycle/start 08/27 Senna [Senokot] 1 - 2 tab PO DAILY PRN 06/06/21 08/26/21 oxyCODONE [Roxicodone] 5 - 10 mg PO Q3HR PRN 06/06/21 08/26/21 polyethylene glycoL 3350 [Miralax] 17 gm PO DAILY PRN MDD bid 06/06/21 08/26/21 Fulvestrant [Faslodex] 250 mg IM .MONTHLY 06/10/21 08/26/21 Goserelin [Zoladex] 3.6 mg SUBQ .MONTHLY 06/10/21 08/26/21 Ondansetron [Zuplenz] 4 mg PO Q6HR PRN 07/29/21 08/26/21 Pregabalin [Lyrica] 150 mg PO BID 07/29/21 08/26/21 - Allergies Allergies/Adverse Reactions: Allergies Allergy/AdvReac Type Severity Reaction Status Date / Time No Known Drug Allergies Allergy Verified 06/10/21 10:18 Review of Systems - Constitutional Constitutional: reports: Fatigue (persistent but better tolerated), Night sweats, Weight gain (96.8). denies: Fever, Chills - Ears, Nose & Throat Ears, Nose & Throat: reports: Dry mouth - Cardiovascular Cardiovascular: reports: Decr. exercise tolerance - Respiratory Respiratory: reports: SOB with exertion. denies: SOB at rest - Gastrointestinal Gastrointestinal: reports: Early satiety (declined with swallowing problems), Other (food aversions). denies: Constipation, Reflux/heartburn (resolved) - Genitourinary Genitourinary: reports: Frequency. denies: Incontinence - Musculoskeletal Musculoskeletal: reports: Back pain (right iliac crest area), Muscle aches, Stiffness, Muscle weakness. denies: Joint pain (improved) - Integumentary Integumentary: reports: Dryness - Neurological Neurological: reports: Headache (intermittent using ibuprofen with good response), Numbness (improving left back/hip area no longer radiataing) - Psychiatric Psychiatric: reports: Depression, Anxiety - Endocrine Endocrine: reports: Other (hot flashes worsening) - Hematologic/Lymphatic Hematologic/Lymph: reports: Anemia - All Other Systems All Other Systems: reports: Reviewed and negative Physical Exam - Physical Exam General Appearance: positive: No acute distress, Alert Eyes Bilateral: positive: No scleral icterus ENT: positive: No signs of dehydration Neck: positive: Trachea midline Cardiovascular: positive: Regular rate & rhythm Respiratory: positive: No respiratory distress Abdomen: positive: Soft, Obese Skin: positive: Pallor, Dryness Extremities: positive: Full ROM, No pedal edema, Other (walking better) Neurologic/Psychiatric: positive: Oriented x3, Mood/affect nml, Flat affect Palliative Care - POLST Patient has POLST: No POLST Status: Full Code Pain: Pain improved, Location (left back area; worse with activity), Severity (2/10), Comment (using oxycodone prior to activity and for pain at night with pressure of laying; averagain 1-3/24 hour) Tiredness/Fatigue: Mild (1-3) Drowsiness/Sedation: Mild (1-3) Nausea: None Anorexia: None Dyspnea: None Depression: Mild (1-3) Anxiety: Mild (1-3) Feelings of wellbeing/Perceived Quality of Life: Good Sleep: Sleep improved Constipation: Yes, Opoid induced, Managed Performance Status: Met withPatient continues to try and increase activity, though is limited sometimes both by energy and pain. She is able to manage her ADLs, she does have multiple children at 06/05/2022, and continues to try to keep. - Palliative Care Discussion: Discussion centered again on patient's managing, things that she would like to accomplish while she is feeling good, she currently is not limited by her pain, though given her recent history with her pain escalation, I did understand she maintains her functional status again. She is planning to go to a [employer] festival, has since been signed up. Hands, does have some anxiety around finances. We did discuss some strategies as well as friends have conversations regarding this. Encouraged her to ask for more help, as most people generally do help, this also could be in the context of a Go Fund Me opportunity for friends and family to contribute to. Results - Lab Results Lab results reviewed: Yes Impression and Recommendations - Palliative Care Impression: This is a 35-year-old woman with recurrent metastatic breast cancer to the bone, concern regarding metastatic disease to the liver. Her pain is currently controlled, and continues to improve.. GERD symptoms have resolved. Most likely attributed to side effects from radiation. Palliative care continue provide support for pain and symptom management, psychosocial support and anticipatory guidance Recommendations/Counseling Done: 1. Pain of neoplastic origin. Patient is appropriate for use, continues to use little oxycodone usually 1-3 times a day, attributing to increased activity for increased use. She has done better as far as compliance with pregabalin 50 mg twice daily. She does feel like she is doing better overall and her pain is well controlled. 2. Constipation. Patient with MiraLAX and senna titrating appropriately has been no constipation. 3. Reflux. This was attributed to side effects of radiation, has since resol sonia. Has been wanting to continue. Omeprazole. 4. Fatigue. This is multifactorial, in including the context of her treatment, anemia, and medication side effects. Patient has been trying to increase her activity, is setting goals and planning activities. 5. Anxiety. This is multifactorial, more focused today and financial stressors. Counseling provided regarding ways to reach out for assistance and help. We will continue to follow. 6. Advanced care planning. Patient's goals are to take advantage of times we have now as far as feeling improved, planning activities, and making some memories. We will continue support patient on monthly basis. 45 minutes with review of chart, labs, [id number] and counseling for pain and symptom management psychosocial support and anticipatory guidance. For consistent care with oncology team
== END 2021-08-26 09:44 | disposition home or self-care (01) ==
LOC: PC 09:43
PROVIDERS: ATTEND Nurse Practitioner Adult Health
DX: Z51.5 Encounter for palliative care (principal); G89.3 Neoplasm related pain (acute) (chronic); C50.919 Malignant neoplasm of unspecified site of unspecified female breast; C79.51 Secondary malignant neoplasm of bone; K59.03 Drug induced constipation; T40.2X5A Adverse effect of other opioids, initial encounter; D64.9 Anemia, unspecified; R53.83 Other fatigue; T50.905A Adverse effect of unspecified drugs, medicaments and biological substances, initial encounter; F41.9 Anxiety disorder, unspecified
CPT/HCPCS: 99215

== ENCOUNTER 2021-10-28 08:00 | Outpatient (CLI) | payer BC ==
[2021-10-28 13:36] LABS: BILIRUBIN,URINE NEGATIVE (NEGATIVE); GLUCOSE, URINE (UA) NEGATIVE (NEGATIVE); KETONES,URINE (UA) NEGATIVE (NEGATIVE); LEUKOCYTE ESTERASE, URINE SMALL (NEGATIVE); NITRITE,URINE POSITIVE (NEGATIVE); OCCULT BLOOD,URINE SMALL (NEGATIVE); PROTEIN,URINE TRACE mg/dL (NEGATIVE); UROBILINOGEN,URINE 0.2 (NORMAL) E.U./dL (NORMAL)
[2021-10-28 14:02] LABS: CLARITY,URINE SL. CLOUDY (CLEAR)
[2021-10-28 14:03] LABS: BACTERIA,URINE Many /HPF (None Seen); RBC,URINE 0-5 /HPF (0-5); SQUAMOUS EPITHELIAL CELL,UR RARE Squamous (<= Few); WBC,URINE >25 /HPF (0-5)
== END 2021-10-28 23:59 | disposition home or self-care (01) ==
LOC: LAB.N 08:00
PROVIDERS: ATTEND Physician Assistant
DX: R39.15 Urgency of urination (principal)
CPT/HCPCS: 81001; 87077; 87086; 87181

== ENCOUNTER 2022-02-14 08:00 | Outpatient (CLI) | payer BC | END 2022-02-14 23:59 | disposition home or self-care (01) | LOC: LAB.N 08:00 | PROVIDERS: ATTEND Physician Assistant Medical | DX: R35.0 Frequency of micturition (principal) | CPT/HCPCS: 87086; 87181 ==

== ENCOUNTER 2022-07-16 10:27 | Emergency (ER) | payer BC ==
[2022-07-16] MEDS ORDERED: KETOROLAC 60 MG/2 ML VIAL IM STA (12:15)
--- NOTE | 2022-07-16 12:21 | ED Physician Documentation ---
History of Present Illness - Stated complaint Stated Complaint: LT SHOULDER PX - Chief complaint Chief Complaint: Back Pain - History obtained from History obtained from: Patient - History of Present Illness Timing: Today - Additonal information Additional information: Senia Rm is a 36-year-old female with metastatic breast cancer who was stretching this morning when she felt a sudden pop and felt a pain in her left scapula. She continues to have pain in the scapula of 6 out of 10. She is worried about this being similar to what she had when she had mets in her spine and hip. She had radiation therapy for that which helped. She does have pain medication at home. Review of Systems Constitutional: denies: Fever Eyes: denies: Decreased vision Ears: denies: Ear pain Nose: denies: Rhinorrhea / runny nose, Congestion Cardiac: reports: Chest pain / pressure Respiratory: denies: Cough GI: denies: Vomiting PD PAST MEDICAL HISTORY - Past Medical History Cardiovascular: None Respiratory: None Neuro: Headaches Endocrine/Autoimmune: None GI: None FACILITY SPECIALIST: Breast cancer : None HEENT: None Psych: Depression Musculoskeletal: Fatigue Derm: None - Past Surgical History Past Surgical History: Yes /FACILITY SPECIALIST: Mastectomy - Present Medications Home Medications: Ambulatory Orders Medication Instructions Recorded Confirmed DULoxetine [Cymbalta] 30 mg PO DAILY 08/20/20 07/07/22 Fulvestrant [Faslodex] 250 mg IM .MONTHLY 06/10/21 07/07/22 Goserelin [Zoladex] 3.6 mg SUBQ .MONTHLY 06/10/21 07/07/22 Pregabalin [Lyrica] 150 mg PO BID 07/29/21 07/07/22 Palbociclib [Ibrance] 125 mg PO DAILY 02/18/22 07/07/22 - Allergies Allergies/Adverse Reactions: Allergies Allergy/AdvReac Type Severity Reaction Status Date / Time No Known Drug Allergies Allergy Verified 07/16/22 10:38 - Social History Does the pt smoke?: No Smoking Status: Never smoker Does the pt drink ETOH?: No Does the pt have substance abuse?: No - Immunizations Immunizations are current?: No Immunizations: Other immun not current - POLST Patient has POLST: No PD ED PE NORMAL - Vitals Vital signs reviewed: Yes (hypertensive ) - General General: Alert and oriented X 3, No acute distress, Well developed/nourished - HEENT HEENT: Atraumatic, PERRL, EOMI - Neck Neck: Supple, no meningeal sign, No bony TTP - Cardiac Cardiac: RRR, No murmur - Respiratory Respiratory: No respiratory distress, Clear bilaterally, Other (There is point tenderness to the left scapula over the rhomboid muscle area inferiorly. No palpable mass. ) - Abdomen Abdomen: Soft, Non tender - Back Back: No CVA TTP, No spinal TTP - Derm Derm: Normal color, Warm and dry, No rash - Extremities Extremities: No deformity, No edema - Neuro Neuro: Alert and oriented X 3, warper creeler 2-12 intact, No motor deficit, No sensory deficit, Normal speech Eye Opening: Spontaneous Motor: Obeys Commands Verbal: Oriented GCS Score: 15 - Psych Psych: Normal mood, Normal affect Results - Vitals Vitals: Vital Signs - 24 hr 07/16/22 07/16/22 10:35 13:24 Temperature 36.7 C Heart Rate 100 93 Respiratory 20 20 Rate Blood Pressure 146/96 H 149/86 H O2 Saturation 97 96 Oxygen O2 Source Room air - Rads (name of study) ribs L Relevant Findings:: Prelim report reviewed (Impression: No displaced fracture or pneumothorax.), EMP independent interpretation of test (On my read I do not see any obvious bony mets to the scapula or ribs.) PD Medical Decision Making - ED course Complexity details: considered differential, d/w patient ED course: 36-year-old female with a pain to her left scapula after stretching has concerns about the possibility of metastatic disease. She has an ache and pain to her rhomboid muscles on the left side. We obtained a plain film of her chest with a detail of the ribs on the left side and found no obvious metastatic lesions. There were no specific findings on the plain films. I shared this with the patient and we were able to provide some pain relief in the form of Toradol followed by Dilaudid. The patient has pain medication at home. Departure - Departure Disposition: 01 Home, Self Care Clinical Impression: Back pain Qualifiers: Back pain location: thoracic back pain Chronicity: acute Back pain laterality: left Qualified Code(s): M54.6 - Pain in thoracic spine Condition: Stable Instructions: ED Spasm Back No Trauma Follow-Up: Shara Lizarraga PA-C [Primary Care Provider] - Comments: Senia, today it looks like the pain you are having in your back is a musculoskeletal source and I do not see any obvious evidence of metastases to the bones in the chest wall. My recommendation is to use your pain medication as needed for control the pain and be certain to hydrate. Discharge Date/Time: 07/16/22 13:32
--- NOTE | 2022-07-16 12:23 | XRAY Report ---
PROCEDURE: Ribs w/PA Chest LT INDICATIONS: rib pain, L posterior, h/o met breast CA TECHNIQUE: 2 views of the left ribs were acquired, along with a single view chest. COMPARISON: None FINDINGS: Surgical changes and devices: None. Bones and chest wall: No fractures or dislocations. No suspicious bony lesions. Overlying soft tis sues appear unremarkable. Lungs and pleura: No pleural effusions or pneumothorax. Lungs appear clear. Mediastinum: Mediastinal contours appear normal. Heart size is normal. IMPRESSION: No displaced fracture or pneumothorax. Reviewed by: Horacio Dennis on 07/16/2022 12:21 PM PDT Approved by: Horacio Dennis on 07/16/2022 12:21 PM PDT Station ID: [id number]
[2022-07-16] MEDS ORDERED: HYDROmorphone 1 MG/ML CARPUJECT IM STA (12:58)
[2022-07-16] MEDS ORDERED: ONDANSETRON ODT 4 MG TABLET TL STA (12:58)
[2022-07-16 13:25] VITALS: BP 149/86
== END 2022-07-16 13:32 | disposition home or self-care (01) ==
LOC: ED 10:27
DX: M54.6 Pain in thoracic spine (principal)
CPT/HCPCS: 71101; 96372; 99283; 99284; J1170; Q0162

== ENCOUNTER 2022-09-22 09:10 | Outpatient (CLI) | payer BC | END 2022-09-22 09:11 | disposition home or self-care (01) | LOC: LAB 09:10 | PROVIDERS: ATTEND Internal Medicine Hematology & Oncology | DX: Z53.9 Procedure and treatment not carried out, unspecified reason (principal) ==

== ENCOUNTER 2023-06-29 08:00 | Outpatient (CLI) | payer BC | END 2023-06-29 23:59 | disposition home or self-care (01) | LOC: PC 08:00 | PROVIDERS: ATTEND Nurse Practitioner Adult Health | DX: Z51.5 Encounter for palliative care (principal); C50.912 Malignant neoplasm of unspecified site of left female breast; C79.51 Secondary malignant neoplasm of bone; C78.7 Secondary malignant neoplasm of liver and intrahepatic bile duct; G89.3 Neoplasm related pain (acute) (chronic); R23.2 Flushing; L27.1 Localized skin eruption due to drugs and medicaments taken internally; G62.0 Drug-induced polyneuropathy; T45.1X5A Adverse effect of antineoplastic and immunosuppressive drugs, initial encounter; R00.0 Tachycardia, unspecified; R42 Dizziness and giddiness; F32.A Depression, unspecified; F41.9 Anxiety disorder, unspecified; R53.83 Other fatigue; Z90.13 Acquired absence of bilateral breasts and nipples; Z92.21 Personal history of antineoplastic chemotherapy; Z92.3 Personal history of irradiation; Z79.899 Other long term (current) drug therapy; Z86.16 Personal history of COVID-19; Z85.820 Personal history of malignant melanoma of skin; Z59.9 Problem related to housing and economic circumstances, unspecified; Z63.79 Other stressful life events affecting family and household; Z71.89 Other specified counseling | CPT/HCPCS: 99215 ==

== ENCOUNTER 2023-06-29 08:00 | Outpatient (CLI) | payer BC ==
[2023-06-29 11:55] LABS: THYROID STIMULATING HORMONE 3.21 uIU/mL (0.34-5.60)
== END 2023-06-29 23:59 | disposition home or self-care (01) ==
LOC: LAB 08:00
PROVIDERS: ATTEND Physician Assistant Medical
DX: R00.0 Tachycardia, unspecified (principal)
CPT/HCPCS: 36415; 84443

== ENCOUNTER 2023-07-29 08:09 | Outpatient (CLI) | payer BC | END 2023-07-29 08:10 | disposition home or self-care (01) | LOC: DI 08:09 | PROVIDERS: ATTEND Physician Assistant Medical | DX: R00.0 Tachycardia, unspecified (principal) | CPT/HCPCS: 93307 ==

== ENCOUNTER 2023-08-24 09:15 | Outpatient (CLI) | payer BC | END 2023-08-24 23:59 | disposition home or self-care (01) | LOC: PC 09:15 | PROVIDERS: ATTEND Nurse Practitioner Adult Health | DX: Z51.5 Encounter for palliative care (principal); C50.919 Malignant neoplasm of unspecified site of unspecified female breast; C78.7 Secondary malignant neoplasm of liver and intrahepatic bile duct; C79.51 Secondary malignant neoplasm of bone; F32.A Depression, unspecified; G89.3 Neoplasm related pain (acute) (chronic); F41.8 Other specified anxiety disorders; J30.9 Allergic rhinitis, unspecified; Z71.89 Other specified counseling | CPT/HCPCS: 99215 ==

== ENCOUNTER 2023-09-02 11:05 | Outpatient (CLI) | payer BC ==
--- NOTE | 2023-09-02 12:15 | XRAY Report ---
PROCEDURE: Chest 2V INDICATIONS: LEFT PLEURAL EFFUSION TECHNIQUE: 2 views of the chest were acquired. COMPARISON: 08/18/2023. FINDINGS: Surgical changes and devices: Left chest wall port tip terminates over the low SVC. Lungs and pleura: Stable small left pleural effusion. Mediastinum: Mediastinal contours appear normal. Heart size is normal. Bones and chest wall: No suspicious bony lesions. Overlying soft tissues appear unremarkable. IMPRESSION: Stable small left pleural effusion. Reviewed by: Horacio Dennis MD on 09/02/2023 12:13 PM PDT Approved by: Horacio Dennis MD on 09/02/2023 12:13 PM PDT Station ID: [id number]
== END 2023-09-02 11:06 | disposition home or self-care (01) ==
LOC: DI 11:05
PROVIDERS: ATTEND Nurse Practitioner Adult Health
DX: J90 Pleural effusion, not elsewhere classified (principal); C50.919 Malignant neoplasm of unspecified site of unspecified female breast

== ENCOUNTER 2023-10-21 08:00 | Outpatient (CLI) | payer BC | END 2023-10-21 23:59 | disposition home or self-care (01) | LOC: PC 08:00 | PROVIDERS: ATTEND Nurse Practitioner Adult Health | DX: Z51.5 Encounter for palliative care (principal); C50.919 Malignant neoplasm of unspecified site of unspecified female breast; C79.51 Secondary malignant neoplasm of bone; C78.7 Secondary malignant neoplasm of liver and intrahepatic bile duct; R73.9 Hyperglycemia, unspecified; J90 Pleural effusion, not elsewhere classified; G89.3 Neoplasm related pain (acute) (chronic); Z71.89 Other specified counseling | CPT/HCPCS: 99215 ==

== ENCOUNTER 2023-11-23 08:00 | Outpatient (CLI) | payer BC | END 2023-11-23 23:59 | disposition home or self-care (01) | LOC: PC 08:00 | PROVIDERS: ATTEND Nurse Practitioner Adult Health | DX: Z51.5 Encounter for palliative care (principal); C50.911 Malignant neoplasm of unspecified site of right female breast; C79.51 Secondary malignant neoplasm of bone; G89.3 Neoplasm related pain (acute) (chronic); E11.65 Type 2 diabetes mellitus with hyperglycemia; J90 Pleural effusion, not elsewhere classified; F41.9 Anxiety disorder, unspecified; Z17.0 Estrogen receptor positive status [ER+]; Z79.84 Long term (current) use of oral hypoglycemic drugs | CPT/HCPCS: 99214 ==

== ENCOUNTER 2023-12-04 15:44 | Emergency (ER) | payer BC ==
--- NOTE | 2023-12-04 16:01 | ED Physician Documentation ---
History of Present Illness - Stated complaint Stated Complaint: SOA - Chief complaint Chief Complaint: Resp - Additonal information Additional information: 38-year-old female Presents emergency department for worsening shortness of breath. Patient is currently undergoing treatment for breast cancer she was originally diagnosed in 2019 she had a bilateral mastectomy and recurrent breast cancer came back about a year or 2 ago. She was under the care of Dr. Cook who has recently quit but did put in some stat orders for her yesterday today she says that it has gotten so severe that she is having a hard time taking a deep breath in. She says that she has known pleural effusions in her left lung. No fevers or chills unable to ambulate prolonged distances. According to patient's previous chart now she has metastatic breast cancer involving bones and liver. 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 : None HEENT: None Psych: Depression Musculoskeletal: Fatigue Derm: None - Past Surgical History Past Surgical History: Yes /MAID HOUSEKEEPER: Mastectomy - Present Medications Home Medications: Ambulatory Orders Medication Instructions Recorded Confirmed DULoxetine [Cymbalta] 60 mg PO DAILY 08/20/20 12/03/23 Pregabalin [Lyrica] 200 mg PO BID 07/29/21 12/03/23 metFORMIN [Glucophage] 500 mg DAILY PM 12/04/23 12/04/23 - Allergies Allergies/Adverse Reactions: Allergies Allergy/AdvReac Type Severity Reaction Status Date / Time No Known Drug Allergies Allergy Verified 12/04/23 16:09 - Social History Does the pt smoke?: No Smoking Status: Never smoker Does the pt drink ETOH?: No Does the pt have substance abuse?: No - Immunizations Immunizations are current?: No Immunizations: Other immun not current - POLST Patient has POLST: No Results - Vitals Vitals: Vital Signs - 24 hr 12/04/23 12/04/23 12/04/23 15:47 16:21 16:30 Temperature 36.5 C Heart Rate 130 H 119 H 125 H Respiratory 28 H 18 16 Rate Blood Pressure 128/83 H 141/106 H 135/82 H O2 Saturation 96 95 93 12/04/23 12/04/23 12/04/23 17:00 17:30 18:00 Temperature Heart Rate 120 H 124 H 115 H Respiratory 25 H 24 26 H Rate Blood Pressure 113/83 H 118/64 O2 Saturation 95 97 94 12/04/23 12/04/23 12/04/23 18:30 19:00 19:30 Temperature 37.0 C Heart Rate 119 H 122 H 107 H Respiratory 20 22 16 Rate Blood Pressure 104/75 106/78 114/63 O2 Saturation 93 93 96 12/04/23 20:00 Temperature 37.0 C Heart Rate 111 H Respiratory 18 Rate Blood Pressure 111/67 O2 Saturation 97 Oxygen O2 Source Room air - EKG (time done) 1619 EKG releavant findings:: EKG personally interpreted by author of this note. Relevant findings are: Rate: Rate (enter#) (122) Rhythm: Sinus tachycardia [place]: Normal Intervals: Normal CT QRS: Normal Other comments: Other comments (Multiform ventricular premature complexes) Computer interpretation: Agree with computer - Labs Labs: Laboratory Tests 12/04/23 12/04/23 16:05 16:05 WBC 5.8 RBC 4.58 Hgb 15.5 Hct 43.7 MCV 95.4 MCH 33.8 H MCHC 35.5 RDW 14.4 Plt Count 268 MPV 10.0 Neut # (Auto) 4.0 Lymph # (Auto) 1.1 L [place] # (Auto) 0.5 Eos # (Auto) 0.1 Baso # (Auto) 0.1 Absolute Nucleated RBC 0.00 Nucleated RBC % 0.0 Sodium 129 L Potassium 3.9 Chloride 94 L Carbon Dioxide 21 Anion Gap 14.0 H BUN 10 Creatinine 0.9 Estimated GFR (MDRD) 70 L Glucose 565 H* Calcium 9.0 Total Bilirubin 0.9 AST 35 ALT 37 Alkaline Phosphatase 129 H Troponin I High Sens 3.7 Total Protein 6.9 Albumin 4.1 Globulin 2.8 Albumin/Globulin Ratio 1.5 Lipase 27 - Rads (name of study) ct chest angio Relevant Findings:: Final report received, EMP independent interpretation of test, Other (No acute pulmonary embolism, large left-sided pleural effusion with compressive atelectasis) chest Xray Relevant Findings:: Final report received, EMP independent interpretation of test, Other (Interval left-sided thoracentesis with improved aeration of the left lung no residual effusion no pneumothorax) PD Medical Decision Making - ED course ED course: 38-year-old female presents emergency department for acute worsening shortness of breath and tachycardia. Differentials include but are not limited to pneumonia, pulmonary embolism, worsening neoplasm, worsening pleural effusion Angio chest CT was complete to rule out possible pulmonary emboli which did successfully rule out pulmonary emboli but did reveal a large left-sided pleural effusion with compression atelectasis. Similar sclerotic appearance of the T12 vertebral body and the first left and seventh ribs with additional scattered sclerotic lesions in the vertebral bodies concerning for possible worsening metastatic disease. Mild right lung interlobular septal thickening which may be due to early pulmonary edema versus low lung volume. With this large pleural effusion I involve Dr. Shay per the ER physician to help tap patient's large pleural effusion. See his procedure note for further details, ultimately he was successfully able to remove about 2 L of fluid off of patient's left lung. Morphine was given for pain and as well as oxycodone and patient did report significant improvement of symptoms and feeling like she is able to breathe with more ease. Patient was informed that her oncologist was worried for possible malignancy and advancement of her cancer disease which is what is likely causing these pleural effusions. Pleural effusion fluid was sent to lab for cytology and further evaluation. No anemia no leukocytosis she does have quite the elevated blood sugar 565. She was given 10 units of IV regular insulin and blood sugar significantly improved, coming down to the mid 300s. Hyponatremia appears to be pseudo corrected sodium is 136. Patient remained tachycardic after pleural effusion was drained but patient also reports this is her baseline she has had multiple outpatient workups and no acute abnormal findings have been found outpatient for tachycardia. She says this is her baseline being in the 110s to 1 teens. She says that she has pain medication as well as antinausea medication at home she has a follow-up appoint with her new oncologist November 21 and was told to remind her oncologist to look for the cytology cell report of the pleural effusion labs that we sent to the lab. At this point time patient is safe for discharge as well as eager for discharge all questions have been answered return precautions given Departure - Departure Disposition: 01 Home, Self Care Clinical Impression: Pleural effusion Instructions: Effusion Pleural Comments: Thank you for trusting us with your care. We have drained about 2 L from your left lung. Please remind your oncologist to watch out for the cytology cell report. Please come back in if you have any worsening symptoms, fevers, chills, nausea vomiting or any other emergent symptoms. Wishing you the best. Forms: PCP List Discharge Date/Time: 12/04/23 20:14
[2023-12-04] MEDS ORDERED: iohexoL-300 100 ML VIAL ONE (16:07)
[2023-12-04 16:15] LABS: BASOPHILS # (AUTO) 0.1 10^3/uL (0.0-0.1); EOSINOPHILS # (AUTO) 0.1 10^3/uL (0.0-0.7); EOSINOPHILS % (AUTO) 1.9 %; HCT - HEMATOCRIT 43.7 % (37.0-47.0); HGB - HEMOGLOBIN 15.5 g/dL (12.0-16.0); LYMPHOCYTES # (AUTO) 1.1 10^3/uL (1.5-3.5); LYMPHOCYTES % (AUTO) 18.4 %; MEAN CORPUSCULAR HEMOGLOBIN 33.8 pg (27.0-31.0); MEAN CORPUSCULAR HGB CONC 35.5 g/dL (32.0-36.0); MEAN CORPUSCULAR VOLUME 95.4 fL (81.0-99.0); MONOCYTES # (AUTO) 0.5 10^3/uL (0.0-1.0); MONOCYTES % (AUTO) 8.3 %; NEUTROPHILS % (AUTO) 69.9 %; PLT - PLATELET COUNT 268 10^3/uL (130-450); RED BLOOD COUNT 4.58 10^6/uL (4.20-5.40); RED CELL DISTRIBUTION WIDTH 14.4 % (12.0-15.0); WHITE BLOOD COUNT 5.8 x10^3/uL (4.8-10.8)
[2023-12-04 16:31] LABS: TROPONIN I HIGH SENSITIVITY 3.7 ng/L (2.3-14.8)
[2023-12-04 16:50] LABS: ALBUMIN 4.1 g/dL (3.2-5.5); ALBUMIN/GLOBULIN RATIO 1.5 (1.0-2.2); BILIRUBIN,TOTAL 0.9 mg/dL (0.2-1.0); CREATININE 0.9 mg/dL (0.6-1.3); POTASSIUM 3.9 mmol/L (3.5-4.5); TOTAL PROTEIN 6.9 g/dL (6.4-8.9)
[2023-12-04] MEDS: INSULIN REGULAR, HUMAN 300 UNIT/3 ML PEN IVP STA (17:26)
[2023-12-04] MEDS: LIDOCAINE 1%-EPI 1:100000 20 ML MDV SUBQ STA (17:35)
--- NOTE | 2023-12-04 17:59 | ED Physician Documentation ---
ED Addendum - Addendum Addendum: 12/04/23 17:58 Please see the [employer]'s note for full H&P. Briefly became involved to assist with thoracentesis for a very large left symptomatic likely malignant pleural effusion. Procedure note left thoracentesis Risk benefits alternatives were discussed with patient, specifically discussed risks such as vascular injury, pneumothorax, infection or need for surgery and she signed consent. The left back was prepped and draped with ChloraPrep in standard fashion and ultrasound was used to identify an appropriate spot. She was locally infiltrated with 1% lidocaine with epinephrine and then the 8 [place] catheter over needle kit was used to access the pleural space and a total of 2 L of fairly bloody pleural effusion was drained and sent for cytology. Patient did have some postoperative coughing but otherwise did well. I asked [facility] to order a post operative chest x-ray.
[2023-12-04] MEDS: iohexoL-300 100 ML VIAL IVP ONE (18:15)
[2023-12-04] MEDS: MORPHINE 2 MG/ML CARPUJECT IVP STA (18:16)
--- NOTE | 2023-12-04 18:41 | CT Report ---
PROCEDURE: Angio Chest INDICATIONS: SOA, breast cancer, tachy CONTRAST: omni 100 TECHNIQUE: After the administration of intravenous contrast, 2 mm axial images were acquired from the pulmonary apices to the posterior costophrenic angles during the arterial phase. In addition, 1 mm lung kernel and 5 mm soft tissue kernel reconstructions were performed. 3-dimensional coronal oblique maximum int ensity projection (MIP) reformats, 8 mm axial MIP, and 5 mm coronal and sagittal MPR reformats were t hen performed through the thorax. For radiation dose reduction, the following was used: automated exp osure control, adjustment of mA and/or kV according to patient size. COMPARISON: CT chest on August 18, 2023. FINDINGS: Image quality: Excellent. Large vessels: Enhancement of the pulmonary arteries adequate. No acute filling defect to the level o f the segmental pulmonary arteries. Main pulmonary artery is normal in caliber. Thoracic aorta is nor mal in caliber, without aneurysm. Origins of the great vessels are patent. Lungs and pleura: No consolidation. Large left-sided pleural effusion with compressive atelectasis. N o right-sided pleural effusion. Mild right-sided interlobular septal thickening. No pneumothorax karena aterally. Dependent atelectasis. No definite pulmonary nodule or focal consolidation. Mediastinum: Heart size is normal. No pericardial effusion. Right-sided port tip terminates in the up per SVC. No mediastinal adenopathy by size criteria. Chest wall and lower neck: Right chest wall port. Thyroid is unremarkable. No axillary or supraclavic ular adenopathy by size. Bones: Similar appearance of irregular mixed lytic and sclerotic pattern in the T9 vertebral body. Pa rtially visualized peripherally sclerotic lucent lesion in the T12 vertebral body, similar to prior. Additional several round sclerotic vertebral body lesions, as seen on prior. Sclerotic an expansile a ppearance of the left first rib, similar to prior (5/12). Similar appearance of additional sclerotic appearance of the left lateral seventh rib (5/71). Similar appearance of sclerotic lesion in the left lateral sixth rib (5/56). Probable healed fracture deformity of the left anterior second rib (5/29), stable. Upper Abdomen: Unremarkable. IMPRESSION: 1.No acute pulmonary embolism to the level of the segmental pulmonary arteries. 2.Large left-sided pleural effusion with compressive atelectasis. 3.Similar sclerotic appearance of the T12 vertebral body and left first and seventh ribs. Additional scattered sclerotic lesions in the vertebral bodies. Findings are suspicious for metastatic disease. 4.Mild right lung interlobular septal thickening which may reflect early pulmonary edema versus low l you volume. Reviewed by: Ashok Valentin MD on 12/04/2023 5:40 PM AKDT Approved by: Ashok Valentin MD on 12/04/2023 5:40 PM AKDT Station ID: [id number]
--- NOTE | 2023-12-04 19:19 | XRAY Report ---
PROCEDURE: Chest 1V INDICATIONS: post pleural effusion tap TECHNIQUE: One view of the chest was acquired. COMPARISON: Same day CTA chest. Chest radiograph on September 02, 2023. FINDINGS: Surgical changes and devices: Right-sided port tip terminates in the upper SVC. Lungs and pleura: Interval left-sided thoracentesis. No pneumothorax or residual effusion. Improved aeration of the left lung compared to same day CTA chest. Mediastinum: Mediastinal contours appear normal. Heart size is normal. Bones and chest wall: No suspicious bony lesions. Overlying soft tissues appear unremarkable. IMPRESSION: Interval left-sided thoracentesis with improved aeration of the left lung and no residual effusion. N o pneumothorax. Reviewed by: Ashok Valentin MD on 12/04/2023 6:17 PM VIRGILIO Approved by: Ashok Valentin MD on 12/04/2023 6:17 PM VIRGILIO Station ID: [id number]
[2023-12-04] MEDS: oxyCODONE 5 MG TABLET PO STA (19:59)
[2023-12-04 20:08] VITALS: BP 111/67; O2SAT 97
== END 2023-12-04 20:14 | disposition home or self-care (01) ==
LOC: ED 15:44
DX: J90 Pleural effusion, not elsewhere classified (principal); C50.919 Malignant neoplasm of unspecified site of unspecified female breast
CPT/HCPCS: 32554; 36415; 71045; 71275; 80053; 83690; 84484; 85025; 93005; 96374; 99284; 99285; A9270; Q9967

== ENCOUNTER 2023-12-24 23:21 | Emergency (ER) | payer BC ==
--- NOTE | 2023-12-24 23:38 | ED Physician Documentation ---
History of Present Illness - Stated complaint Stated Complaint: CHEST PX - History obtained from History obtained from: Patient - Additonal information Additional information: 38-year-old female with history of metastatic breast cancer on Sacituzumab, IDDM presents for midepigastric chest burning sensation and the sensation that her heart is beating rapidly. Patient states that with this most recent round of chemotherapy her baseline resting heart rate is between 110-120bpm, but her watch was recording heart rate as high as 150bpm. Patient seen in the ED 12/03 for shortness of breath, found to have large L sided pleural effusion. Patient underwent thoracentesis in the ED, cytology showed malignant cells consistent with malignant effusion. Patient took omeprazole prior to arrival without relief. Review of Systems Constitutional: denies: Fever, Chills Cardiac: reports: Chest pain / pressure, Palpitations. 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: Mastectomy - Present Medications Home Medications: Ambulatory Orders Medication Instructions Recorded Confirmed DULoxetine [Cymbalta] 60 mg PO DAILY 08/20/20 12/20/23 Pregabalin [Lyrica] 200 mg PO DAILY 07/29/21 12/20/23 metFORMIN [Glucophage] 1,000 mg BID 12/04/23 12/04/23 Omeprazole 20 mg PO DAILY 12/20/23 12/20/23 Pyridoxine HCl (Vitamin B6) 12/20/23 [Vitamin B6] oxyCODONE [Roxicodone] 5 mg PO Q3HR PRN 12/20/23 12/20/23 Insulin Aspart [Novolog Flexpen] 5 unit SUBQ TID PRN 12/23/23 12/23/23 Insulin Glargine [Lantus Solostar] 10 unit SUBQ QPM 12/23/23 12/23/23 - Allergies Allergies/Adverse Reactions: Allergies Allergy/AdvReac Type Severity Reaction Status Date / Time No Known Drug Allergies Allergy Verified 12/24/23 23:37 - Social History Does the pt smoke?: No Smoking Status: Never smoker Does the pt drink ETOH?: No Does the pt have substance abuse?: No - Immunizations Immunizations are current?: No Immunizations: Other immun not current - POLST Patient has POLST: No PD ED PE NORMAL - Vitals Vital signs reviewed: Yes - General General: Alert and oriented X 3, No acute distress, Well developed/nourished - Cardiac Cardiac: No murmur, Strong equal pulses, Other (tachycardia, regular rhythm) - Respiratory Respiratory: No respiratory distress, Other (slight decrease breath sounds LLL) - Abdomen Abdomen: Soft, Non tender, Non distended - Derm Derm: Normal color, Warm and dry, No rash - Extremities Extremities: No deformity, No tenderness to palpate, Normal ROM s pain, No edema - Neuro Neuro: Alert and oriented X 3, 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, No motor deficit, Normal speech - Psych Psych: Normal mood, Normal affect Results - Vitals Vitals: Vital Signs - 24 hr 12/24/23 12/24/23 12/25/23 23:37 23:40 01:28 Temperature 37.1 C 37.1 C Heart Rate 141 H 125 H 122 H Respiratory 20 17 18 Rate Blood Pressure 142/96 H 128/92 H 129/88 H O2 Saturation 97 96 98 Oxygen O2 Source Room air - Labs Labs: Laboratory Tests 12/24/23 12/24/23 12/24/23 23:56 23:56 23:56 WBC 1.4 L* RBC 3.73 L Hgb 12.5 Hct 34.9 L MCV 93.6 MCH 33.5 H MCHC 35.8 RDW 13.1 Plt Count 242 MPV 9.2 Neut # (Auto) Not Reportable Lymph # (Auto) Not Reportable [place] # (Auto) Not Reportable Eos # (Auto) Not Reportable Baso # (Auto) Not Reportable Absolute Nucleated RBC Not Reportable Total Counted 100 Band Neuts % (Manual) 16 H Abnorm Lymph % (Manual) 0 Nucleated RBC % Not Reportable Neutrophils # (Manual) 0.5 L* Lymphocytes # (Manual) 0.6 L Monocytes # (Manual) 0.1 Eosinophils # (Manual) 0.2 Basophils # (Manual) 0.0 Nucleated RBCs 4 Differential Comment MANUAL DIFFERENTIAL WBC Morphology 2+ SMUDGE CELLS Platelet Estimate NORMAL (130-450,000) Platelet Morphology 1+ LARGE PLATELETS RBC Morph Micro Appear 1+ MICROCYTOSIS PT 12.0 INR 1.1 Sodium 131 L Potassium 3.6 Chloride 97 L Carbon Dioxide 22 Anion Gap 12.0 BUN 10 Creatinine 0.7 Estimated GFR (MDRD) 93 Glucose 437 H Calcium 8.8 Total Bilirubin 0.9 AST 26 ALT 43 Alkaline Phosphatase 116 Troponin I High Sens Total Protein 6.5 Albumin 4.0 Globulin 2.5 Albumin/Globulin Ratio 1.6 Urine Color Urine Clarity Urine pH Ur Specific [place] Urine Protein Urine Glucose (UA) Urine Ketones Urine Occult Blood Urine Nitrite Urine Bilirubin Urine Urobilinogen Ur Leukocyte Esterase Ur Microscopic Review Urine Culture Comments 12/24/23 12/25/23 23:56 01:30 WBC RBC Hgb Hct MCV MCH MCHC RDW Plt Count MPV Neut # (Auto) Lymph # (Auto) [place] # (Auto) Eos # (Auto) Baso # (Auto) Absolute Nucleated RBC Total Counted Band Neuts % (Manual) Abnorm Lymph % (Manual) Nucleated RBC % Neutrophils # (Manual) Lymphocytes # (Manual) Monocytes # (Manual) Eosinophils # (Manual) Basophils # (Manual) Nucleated RBCs Differential Comment WBC Morphology Platelet Estimate Platelet Morphology RBC Morph Micro Appear PT INR Sodium Potassium Chloride Carbon Dioxide Anion Gap BUN Creatinine Estimated GFR (MDRD) Glucose Calcium Total Bilirubin AST ALT Alkaline Phosphatase Troponin I High Sens 2.9 Total Protein Albumin Globulin Albumin/Globulin Ratio Urine Color YELLOW Urine Clarity CLEAR Urine pH 6.0 Ur Specific [place] 1.010 Urine Protein NEGATIVE Urine Glucose (UA) >=1000 H Urine Ketones NEGATIVE Urine Occult Blood NEGATIVE Urine Nitrite NEGATIVE Urine Bilirubin NEGATIVE Urine Urobilinogen 0.2 (NORMAL) Ur Leukocyte Esterase NEGATIVE Ur Microscopic Review NOT INDICATED Urine Culture Comments NOT INDICATED PD Medical Decision Making - ED course Complexity details: reviewed old records, reviewed results, re-evaluated patient, considered differential, d/w patient ED course: Midepigastric chest burning sensation and fast heart rate. Patient seen 3 weeks ago for shortness of breath in the emergency department and underwent CT angio imaging at that time to that did not show any pulmonary embolism, however a large left-sided pleural effusion was seen that was subsequently drained in the emergency department, positive for malignant cells. Patient initially quite tachycardic on arrival, even with a reported resting heart rate of 110-120 bpm, however once patient was placed in ED bed and put on monitor heart rate returned to patient's reported baseline heart rate. Laboratory work, chest x-ray ordered. EKG shows sinus tachycardia without acute ischemic findings. Laboratory work reviewed, patient has neutropenia that is new compared to 1 week ago. Patient also has hyperglycemia with known IDDM, patient is not in DKA. CXR shows progressive enlargement of pleural effusion, but vitals are stable, patient not having shortness of breath. Troponin negative. Patient informed of lab and imaging findings including neutropenia and enlargement of pleural effusion. Bedside ultrasound did show fluid collection, however based on the spread of the effusion and normal (for patient) vital signs, will defer thoracentesis at this time. Patient has scheduled follow-up with her oncologist in 1 week. She was advised of close ED return precautions. Patient states that since has been in the emergency department her symptoms have resolved and she feels improved. Departure - Departure Disposition: 01 Home, Self Care Clinical Impression: Chest pain, Pleural effusion Condition: Stable Instructions: ED Chest Pain Atypical Unkn Cause, ED Effusion Pleural Comments: Your laboratory work today shows that you do have a lower white blood cell count then at your last visit. Your value today is 1.4, 1 week ago it was 5.3. Your chest x-ray shows that the pleural effusion on your left-hand side is growing somewhat, however it is not as large as when you were here in November. Your other blood work is reassuring that this is not a heart attack. If your symptoms worsen please return to the emergency department for repeat evaluation, otherwise follow-up with your oncologist as scheduled. Discharge Date/Time: 12/25/23 01:36
[2023-12-25 00:11] LABS: INR 1.1 (0.8-1.2)
[2023-12-25 00:19] LABS: ALBUMIN/GLOBULIN RATIO 1.6 (1.0-2.2); BILIRUBIN,TOTAL 0.9 mg/dL (0.2-1.0); CALCIUM 8.8 mg/dL (8.5-10.3); CREATININE 0.7 mg/dL (0.6-1.3); POTASSIUM 3.6 mmol/L (3.5-4.5); TOTAL PROTEIN 6.5 g/dL (6.4-8.9)
[2023-12-25 00:20] LABS: BASOPHILS % (AUTO) 1.5 %; EOSINOPHILS % (AUTO) 11.8 %; HCT - HEMATOCRIT 34.9 % (37.0-47.0); HGB - HEMOGLOBIN 12.5 g/dL (12.0-16.0); LYMPHOCYTES % (AUTO) 34.6 %; MEAN CORPUSCULAR HEMOGLOBIN 33.5 pg (27.0-31.0); MEAN CORPUSCULAR HGB CONC 35.8 g/dL (32.0-36.0); MEAN CORPUSCULAR VOLUME 93.6 fL (81.0-99.0); MEAN PLATELET VOLUME 9.2 fL (7.9-10.8); MONOCYTES % (AUTO) 14.7 %; NEUTROPHILS % (AUTO) 35.9 %; PLT - PLATELET COUNT 242 10^3/uL (130-450); RED BLOOD COUNT 3.73 10^6/uL (4.20-5.40); RED CELL DISTRIBUTION WIDTH 13.1 % (12.0-15.0)
[2023-12-25 00:32] LABS: WHITE BLOOD COUNT 1.4 x10^3/uL (4.8-10.8)
[2023-12-25 00:35] LABS: ABNORMAL LYMPHS % (MANUAL) 0 %
--- NOTE | 2023-12-25 00:41 | XRAY Report ---
PROCEDURE: Chest 1V INDICATIONS: palpitations, hx metastatic breast ca TECHNIQUE: One view of the chest was acquired. COMPARISON: 12/04/2023 FINDINGS: Surgical changes and devices: A right portacatheter with tip projecting over the lower SVC Lungs and pleura: Low lung volumes. Mild left effusion, increased compared to 12/04/2023 Mediastinum: Normal heart size Bones and chest wall: Unremarkable IMPRESSION: Mild left effusion is increased compared to 12/04/2023. Limited single view radiograph with low lung volumes. No dense consolidation. Reviewed by: Ravi Hernandes MD on 12/25/2023 12:40 AM PDT Approved by: Ravi Hernandes MD on 12/25/2023 12:40 AM PDT Station ID: [id number]
[2023-12-25 01:00] LABS: BAND NEUTROPHILS % (MANUAL) 16 %; EOSINOPHILS # (MANUAL) 0.2 10^3/uL (0-0.7); LYMPHOCYTES # (MANUAL) 0.6 10^3/uL (1.5-3.5); LYMPHOCYTES % (MANUAL) 44 %; MONOCYTES # (MANUAL) 0.1 10^3/uL (0.0-1.0); NEUTROPHILS # (MANUAL) 0.5 10^3/uL (1.5-6.6); NUCLEATED RBC (MANUAL) 4 %
[2023-12-25 01:01] LABS: PLATELET MORPHOLOGY 1+ LARGE PLATELETS (NORMAL); RBC MORPHOLOGY (MULTIPLE) 1+ MICROCYTOSIS (NORMAL)
[2023-12-25 01:02] LABS: DIFFERENTIAL COMMENT MANUAL DIFFERENTIAL; PLATELET ESTIMATE, MANUAL NORMAL (130-450,000) (NORMAL); WBC MORPHOLOGY (MULTIPLE) 2+ SMUDGE CELLS (NORMAL)
[2023-12-25 01:35] VITALS: BP 129/88; O2SAT 98
[2023-12-25 01:44] LABS: BILIRUBIN,URINE NEGATIVE (NEGATIVE); GLUCOSE, URINE (UA) >=1000 mg/dL (NEGATIVE); KETONES,URINE (UA) NEGATIVE (NEGATIVE); LEUKOCYTE ESTERASE, URINE NEGATIVE (NEGATIVE); NITRITE,URINE NEGATIVE (NEGATIVE); OCCULT BLOOD,URINE NEGATIVE (NEGATIVE); PROTEIN,URINE NEGATIVE (NEGATIVE); UROBILINOGEN,URINE 0.2 (NORMAL) E.U./dL (NORMAL)
[2023-12-25 01:49] LABS: CLARITY,URINE CLEAR (CLEAR)
== END 2023-12-25 01:36 | disposition home or self-care (01) ==
LOC: ED 23:21
DX: R07.9 Chest pain, unspecified (principal); J90 Pleural effusion, not elsewhere classified; D70.9 Neutropenia, unspecified; E11.65 Type 2 diabetes mellitus with hyperglycemia; Z79.4 Long term (current) use of insulin; Z79.84 Long term (current) use of oral hypoglycemic drugs
CPT/HCPCS: 36415; 80053; 81001; 81003; 84484; 85025; 85610; 87086; 93005; 99283; 99284

== ENCOUNTER 2023-12-29 09:44 | Outpatient (CLI) | payer BC ==
--- NOTE | 2023-12-29 14:41 | XRAY Report ---
PROCEDURE: Chest 2V INDICATIONS: PLEURAL EFFUSION,LEFT TECHNIQUE: 2 views of the chest were acquired. COMPARISON: Chest radiographs 12/24/2023 and 12/04/2023. FINDINGS: Surgical changes and devices: Stable right chest Port-A-Cath. Lungs and pleura: Small left pleural effusion with atelectasis of the lung base, similar when compar ed to the exam from 12/24/2023. Right lung is clear. No pneumothorax. Mediastinum: Mediastinal contours appear normal. Heart size is normal. Bones and chest wall: No suspicious bony lesions. Overlying soft tissues appear unremarkable. IMPRESSION: Stable small left pleural effusion. Reviewed by: Burton Carvajal MD on 12/29/2023 2:39 PM PDT Approved by: Burton Carvajal MD on 12/29/2023 2:39 PM PDT Station ID: [id number]
== END 2023-12-29 09:45 | disposition home or self-care (01) ==
LOC: DI 09:44
PROVIDERS: ATTEND Nurse Practitioner Adult Health
DX: J90 Pleural effusion, not elsewhere classified (principal); R00.0 Tachycardia, unspecified; C50.919 Malignant neoplasm of unspecified site of unspecified female breast